=== PATIENT | male | born 1970 | race Caucasian/White ===

== ENCOUNTER 2018-04-10 06:11 | Inpatient (IN) | payer OTHER ==
[2018-04-07 15:23] VITALS: BMI 33.2
[2018-04-10] MEDS ORDERED: PNEUMOC 13-VAL CONJ-DIP CRM/PF 0.5 ML DISP.SYRIN IM ONE (06:48)
[2018-04-10] MEDS ORDERED: CEFAZOLIN 2 GM/D5W 2 GM/50 ML ML IVPB ONE (06:54)
[2018-04-10] MEDS ORDERED: GABAPENTIN 300 MG CAPSULE (FP) PO ONE ×2 (07:02→08:50)
[2018-04-10] MEDS ORDERED: BENZOIN TINCTURE SWABSTICK TP ONE (07:05)
[2018-04-10] MEDS ORDERED: HEPARIN NA (PORCINE) 5,000 UNITS/ML 1ML VIAL ONE (07:05)
[2018-04-10] MEDS ORDERED: THROMBIN (BOVINE) 5,000 UNIT VIAL TP ONE ×2 (07:05→10:58)
[2018-04-10] MEDS ORDERED: BUPIVACAINE HCL/PF 0.5% (5MG/ML) 10 ML VIAL ONE (07:33)
[2018-04-10] MEDS ORDERED: MIDAZOLAM HCL 2 MG/2 ML SINGLE DOSE VIAL ONE ×2 (07:34)
--- NOTE | 2018-04-10 07:57 | HP ---
History & Physical Update - History History: No Change - Physical Physical: No Change - Assessment Assessment: No Change - Plan Plan: No Change (H&P is up to date and located in patient's paper chart (will be scanned into his E-chart STEPHAN). No new complaints or medications. Here today for revision of his L5/S1 hardware.)
[2018-04-10] MEDS ORDERED: BUPIVACAINE LIPOSOME/PF (EXPAREL) 266 MG/20 ML VIAL ONE (08:04)
[2018-04-10] MEDS ORDERED: BUPIVACAINE LIPOSOME/PF (EXPAREL) 266 MG/20 ML VIAL NR ONE (08:08)
[2018-04-10] MEDS ORDERED: fentaNYL CITRATE 250 MCG/5 ML VIAL ONE ×2 (08:26)
[2018-04-10] MEDS ORDERED: PROPOFOL 20 ML ONE ×11 (08:27→11:18)
[2018-04-10] MEDS ORDERED: ROCURONIUM BROMIDE 50 MG/5 ML VIAL ONE ×2 (08:27→09:52)
[2018-04-10] MEDS ORDERED: SUCCINYLCHOLINE CHLORIDE 200 MG/10 ML VIAL ONE (08:28)
[2018-04-10] MEDS ORDERED: HYDROmorphone HCl 2 MG/ML VIAL ONE (08:29)
[2018-04-10] MEDS ORDERED: ceFAZolin SODIUM 1 GM VIAL IVPB ONE ×2 (09:23→12:00)
[2018-04-10] MEDS ORDERED: TRANEXAMIC ACID 1000 MG/10 ML VIAL ONE ×2 (09:26→09:56)
[2018-04-10] MEDS ORDERED: VANCOMYCIN 1,000 MG VIAL (RESTRICTED TO ID ONLY) IVPB ONE (09:40)
[2018-04-10] MEDS ORDERED: DEXAMETHASONE SOD PHOSPHATE 4 MG/1 ML VIAL ONE (09:56)
[2018-04-10] MEDS ORDERED: VANCOMYCIN 1,000 MG VIAL (RESTRICTED TO ID ONLY) ONE (09:56)
[2018-04-10] MEDS ORDERED: ONDANSETRON 4 MG/2 ML VIAL ONE (09:56)
[2018-04-10] MEDS ORDERED: ceFAZolin SODIUM 1 GM VIAL ONE ×2 (09:56→11:37)
[2018-04-10] MEDS ORDERED: GLYCOPYRROLATE 0.2 MG/1 ML VIAL ONE (09:56)
[2018-04-10] MEDS ORDERED: NEOSTIGMINE METHYLSULFATE 0.5 MG/1 ML - 10 ML MDV ONE (09:58)
--- NOTE | 2018-04-10 12:37 | PN ---
Progress Note (short form) - Note Progress Note: 47F s/p removal of hardware L5-S1; inspection L5-S1 fusion mass; revision laminectomy L5; laminectomy S1; bilateral facetectomies/osteotomies L5; instrumentation L5-S1; posterolateral arthrodesis L5-S1 POD #0. Primary repair of incidental durotomy. -Admit to ICU post-op. -Pain control: per anaesthesia team; recommend COVER SEAMER; No NSAID's. -NPO until flatus. -DVT PPx: - Mechanical only: YVETTE's, SCD's. -q4h B/L LE NV checks. -Post-op antibiotics x 2 doses. -f/u AM labs. -f/u superficial drain output; drain to gravity (no suction). -d/c Myers catheter when patient ambulating comfortably. -Care per medical hospitalist team. -Discharge planning: f/u 7-10 days after discharge at [facility] [place] [facility]; call for appointment; ; no bending, lifting more than 5lbs , or twisting x 6 months. -Will follow. Gabriel Harrell MD (Orthopaedic Surgery).
--- NOTE | 2018-04-10 12:40 | OP ---
Operative Note - Note: Operative Date: 04/10/18 Pre-Operative Diagnosis: Recurrent L5-S1 spinal stenosis with neurogenic claudication and lower extremity radiculopathy Operation: 1. Removal of hardware L5-S1. 2. Inspection L5-S1 fusion mass. 3. Revision laminectomy L5. 4. Laminectomy S1. 5. Bilateral facetectomies/ osteotomies L5. 6. Posterior instrumentation L5-S1. 7. Posterolateral arthrodesis L5-S1. 8. Bone autograft. 9. Bone allograft. 10. Iliac crest/ pelvis bone marrow aspirate. 11. Stem cell autograft. 12. Intra-operative neural monitoring. 13. Intra-operative biplanar fluoroscopy Post-Operative Diagnosis: Same as Pre-op Surgeon: Gabriel Harrell Receiving Supervisor: José Luis Harrell Anesthesiologist/SPECIAL CLIENT BUS DRIVER: Hansel Lincoln Anesthesia: General Specimens Removed: L5-S1 hardware Estimated Blood Loss (mls): 320 Drains & Tubes with Location: 1 x superficial HemoVac Blood Volume Replaced (mls): 125 (Cell saver) Fluid Volume Replaced (mls): 2,200 (Crystalloid) Operative Report Dictated: Yes
[2018-04-10] MEDS ORDERED: ONDANSETRON 4 MG/2 ML VIAL IVPUSH PRN ×3 (13:10→14:08)
[2018-04-10] MEDS ORDERED: LACTATED RINGERS SOLUTION 1,000 ML IV SCH ×2 (13:15→14:15)
[2018-04-10] MEDS ORDERED: GABAPENTIN 100 MG CAPSULE (FP) PO SCH (14:00)
--- NOTE | 2018-04-10 14:07 | CONSULT ---
Consultation: REQUESTING PROVIDER: Dr. Noe CONSULT REQUEST: We have been asked to medically evaluate this patient for s/p lumbosacral hardware repair HISTORY OF PRESENT ILLNESS: This is a 47 year old male hx of COPD and recurrent L5-S1 spinal stenosis with neurogenic claudication and LE radiculopathy is s/p removal of L5-S1 hardware and the following other intraoperative procedures by Dr. noe: 1. Removal of hardware L5-S1. 2. Inspection L5-S1 fusion mass. 3. Revision laminectomy L5. 4. Laminectomy S1. 5. Bilateral facetectomies/osteotomies L5. 6. Posterior instrumentation L5-S1. 7. Posterolateral arthrodesis L5-S1. 8. Bone autograft. 9. Bone allograft. 10. Iliac crest/pelvis bone marrow aspirate. 11. Stem cell autograft. 12. Intra-operative neural monitoring. 13. Intra-operative biplanar fluoroscopy Patient is s/p OR and is very tired but arousable. States that his first operation was back in 2013. States that he is in 10/10 pain and has a headache. Denies any chest pain or SOB, nausea, vomiting, diarrhea. No bowel movements or flatus at this time. Social Hx: Smoker of many years: "few cigarettes" a day Frequent drinker: reports drinking often but not every day Allergies: Pollen REVIEW OF SYSTEMS: CONSTITUTIONAL: generalized weakness Absent: fever, chills, diaphoresis, malaise, loss of appetite, weight change HEENT: Absent: rhinorrhea, nasal congestion, throat pain, throat swelling, difficulty swallowing, mouth swelling, ear pain, eye pain, visual changes CARDIOVASCULAR: Absent: chest pain, syncope, palpitations, irregular heart rate, lightheadedness , peripheral edema RESPIRATORY: Absent: cough, shortness of breath, dyspnea with exertion, orthopnea, wheezing, stridor, hemoptysis GASTROINTESTINAL: Absent: abdominal pain, abdominal distension, nausea, vomiting, diarrhea, constipation, melena, hematochezia GENITOURINARY: Absent: dysuria, frequency, urgency, hesitancy, hematuria, flank pain, genital pain MUSCULOSKELETAL: back pain Absent: myalgia, arthralgia, joint swelling, neck pain SKIN: Absent: rash, itching, pallor HEMATOLOGIC/IMMUNOLOGIC: Absent: easy bleeding, easy bruising, lymphadenopathy, frequent infections ENDOCRINE: Absent: unexplained weight gain, unexplained weight loss, heat intolerance, cold intolerance NEUROLOGIC: Absent: headache, focal weakness or paresthesias, dizziness, unsteady gait, seizure, mental status changes, bladder or bowel incontinence PSYCHIATRIC: Absent: anxiety, depression, suicidal or homicidal ideation, hallucinations. PHYSICAL EXAMINATION Vital Signs - 24 hr 04/10/18 04/10/18 04/10/18 06:50 06:53 06:55 Temperature 98.1 F Pulse Rate 92 H Respiratory 20 Rate Blood Pressure 128/68 O2 Sat by Pulse 97 97 Oximetry (%) GENERAL: A&Ox3, mild distress EYES: PERRLA, EOMI ENT: Dry mucus membranes NECK: No JVD LUNGS: course breath sounds HEART: tachycardic, no murmurs ABDOMEN: Soft, nontender, BS present MUSCULOSKELETAL: unable to see patient spine due to immobility and pain, drain in place, L knee slightly larger than right but nontender on exam EXTREMITIES: 2+ pulses, no edema. NEUROLOGICAL: Cranial nerves II-XII intact. Motor strength limited due to pain. Sensation intact bilaterally Laboratory Results - last 24 hr 04/10/18 04/10/18 07:30 07:46 Blood Type O POSITIVE O POSITIVE Antibody Screen Negative Active Medications Generic Name Dose Route Start Last Admin Trade Name Freq PRN Reason Stop Dose Admin Acetaminophen 1,000 mg 04/10/18 13:15 Ofirmev Injection - IVPB 04/11/18 05:16 Q8H GEORGE Albuterol Sulfate 1 - 2 puff 04/10/18 14:00 Ventolin Hfa Inhaler - IH QID GEORGE Alprazolam 0.25 mg 04/10/18 22:00 Xanax - PO BID GEORGE Amlodipine Besylate 10 mg 04/11/18 10:00 Norvasc - PO DAILY GEORGE Budesonide/Formoterol Fumarate 1 puff 04/11/18 10:00 Symbicort 160/4.5mcg - IH DAILY GEORGE Cefazolin Sodium/Dextrose 2 gm 04/10/18 19:00 Ancef 2 Gm Premixed Ivpb - IVPB 04/11/18 03:01 Q8H GEORGE Gabapentin 100 mg 04/10/18 14:00 Neurontin - PO TID GEORGE Lactated Ringer's 1,000 mls @ 125 mls/hr 04/10/18 13:15 Lactated Ringers Solution IV ASDIR [facility] Influenza Virus Vaccine Quadrival 60 mcg 04/10/18 06:46 Flulaval Quad [id number] IM 04/10/18 06:47 .ONCE ONE Lisinopril 10 mg 04/11/18 10:00 Prinivil PO DAILY GEORGE Loratadine 10 mg 04/11/18 10:00 Claritin - PO DAILY [facility] Losartan Potassium 25 mg 04/11/18 10:00 Cozaar - PO DAILY [facility] Montelukast Sodium 10 mg 04/10/18 22:00 Singulair - PO HS [facility] Non-Formulary Medication 4 gm 04/11/18 10:00 Ipratropium/Albuterol Sulfate [Combivent Respimat 20-100 Mcg] IH DAILY [facility] Ondansetron HCl 4 mg 04/10/18 13:10 Zofran Injection IVPUSH Q6H PRN NAUSEA AND/OR VOMITING Pneumococcal 13-Valent Conj Vacc 0.5 ml 04/10/18 06:48 Prevnar 13 Syringe - IM 04/10/18 06:49 .ONCE ONE Pregabalin 75 mg 04/11/18 10:00 Lyrica - PO DAILY [facility] Rosuvastatin Calcium 5 mg 04/10/18 22:00 Crestor - PO HS GEORGE Trazodone HCl 50 mg 04/11/18 10:00 Desyrel - PO DAILY [facility] ASSESSMENT/PLAN: This is a 47 year old male hx of COPD, hypertension, anxiety and recurrent L5- S1 spinal stenosis with neurogenic claudication and LE radiculopathy is s/p removal of L5-S1 hardware, POD0 Neuro: patient is A&Ox3 but tired Monitor mental status Neurochecks q4h for motor strength and sensation Cardiovascular: patient is tachycardic, likely due to pain -monitor heart rate and rhythm -will restart hypertensive medications when confirmed Pulmonary: -incentive spirometry recommended Gastrointestinal: patient has not yet passed flatus -NPO until flatus Musculoskeletal: POD0 L5-S1 hardware removal -pain control with PRIMARY SPECIAL EDUCATION TEACHER -monitor drain output on gravity -REGINA mcgraw when patient ambulates -NPO till flatus -AM labs Prophylaxis SCDs Dispo: We will continue to follow the patient. Thank you for this consultative opportunity.
[2018-04-10] MEDS ORDERED: HYDROmorphone *PCA* 10MG/50ML DISP.SYRIN PCA SCH (14:15)
[2018-04-10] MEDS: ACETAMINOPHEN 1000 MG/100 ML VIAL (NON FORMULARY) IVPB SCH (15:55)
[2018-04-10] MEDS: HYDROmorphone *PCA* 10MG/50ML DISP.SYRIN PCA SCH (17:30)
[2018-04-10] MEDS: ceFAZolin 2 GRAM PREMIX BAG IVPB SCH (19:14)
[2018-04-10] MEDS ORDERED: DEXTROSE 5%-LACTATED RINGERS 1,000 ML IV SCH ×2 (19:30→23:11)
[2018-04-10] MEDS ORDERED: FLU VACCINE QUAD 60 MCG/0.5 ML (MDV 18-19) IM ONE (19:30)
[2018-04-10] MEDS ORDERED: PNEUMOCOCCAL 23 VACCINE 0.5 ML VIAL IM ONE (19:30)
[2018-04-10] MEDS ORDERED: MONTELUKAST NA 10 MG TABLET PO SCH (22:00)
[2018-04-10] MEDS ORDERED: ROSUVASTATIN CA 5 MG TABLET (FP) PO SCH (22:00)
--- NOTE | 2018-04-10 22:06 | OP ---
DATE OF OPERATION: 04/10/2018 SURGEON: Gabriel Harrell MD CREDIT INTERN: José uLis Harrell MD PREOPERATIVE DIAGNOSES: Pseudoarthrosis, L5-S1 with associated spinal stenosis and segmental instability. POSTOPERATIVE DIAGNOSES: Pseudoarthrosis, L5-S1 with associated spinal stenosis and segmental instability. OPERATION PERFORMED: 1. Removal of hardware. 2. Inspection of fusion mass. 3. Revision laminectomy, L5 with undercutting facetectomy and takedown of pseudoarthrosis. 4. Pedicle screw instrumentation at L5-S1. 5. Posterolateral arthrodesis, L5-S1. 6. Use of bone marrow aspirate concentrate from left posterior ilium and autologous allograft expansion. 7. Complex wound closure, 25 cm. ANESTHESIA: General. ANTIBIOTICS GIVEN: Kefzol 2 g, vancomycin 1 g. OPERATION DETAILS: Patient correctly identified, brought to the operating room. Lumbar spine was prepped and draped in the routine manner with Betadine scrub solution, wiped off with alcohol, DuraPrep applied. Patient was placed prone on a Thee frame. All bony points were appropriately padded. Surgery performed with the head 10 degrees elevated. Midline incision utilized. The old wound was opened, was extended about 1.5 cm proximally. Dissection was taken through the skin and subcutaneous tissue to the tips of the spinous processes, exposing L3, L4, L5, S1. The tissues were hard, hence the need to getting up to L3 to achieve appropriate retraction. Dissection was taken of the spinous processes down to the laminae of the facet joints out to the tips of the transverse processes, left- and right-hand side. The original hardware was identified and dissected out. This was then simply removed and the fusion mass inspected, found to be unstable, and in keeping with the pseudoarthrosis, the fibrous tissues readily noted in the bony ends of the pseudoarthrosis. Using every surgical technique I knew in order to free the dura as well as into the plane anterior to the dura to remove the large block of bone that was noted posterolaterally on the left-hand side, this necessitated the use of a combination of Kerrison upcuts, Leksell rongeurs, as well as osteotomes in order to implode the bone inwards, and the principle being that dissection was always taken from normal tissue to abnormal tissue to ensure that the planes were established. A small dural tear was encountered distally and sutured with primary 4-0 Nurolon and, with repeat Valsalva maneuvers, was found to be completely sealed. Once that had been performed and the complete freeing of the theca and that the theca was being looked at beautifully from the back extending to the lateral catherine of the theca as all the bone on the sides of the vertebral canal were excised, gently teasing the tissue both from left- and right-hand side off the posterior longitudinal ligament as well as the posterior vertebral bodies, a significant decompression from the front was performed, but this all done from behind. This was technically challenging. The actual bone that was removed from the back wall of the theca was a large, 1-cm block of bone that was ultimately all removed. The wounds were thoroughly lavaged out that the previous fusion was established, failed fusion, we went ahead and excised the fibrous tissue out of the nonunion site and packed it with a combination of autologous bone graft and allograft mixed with 60 mL of bone marrow aspirate concentrate liquid. Once this had been performed, the pedicle screws were seated, the transverse screws were measured 6.5 x 40, and the inferior screws which were re-directed were 7.5 x 40. Solid fixation achieved with screws. It must be noted that at the time of screw removal and the pseudoarthrosis had been encountered, it was noted that the left L5 screw was completely loose. Hence, the need for the size screw on the left S1 being 7.5. The rods were contoured appropriately onto the tulips, fixed solidly with the torque device. No crosslink utilized. The wounds were thoroughly lavaged. The entire theca was free. Each nerve was free in its foramen after undercutting each foramen appropriately. The instrumented posterolateral arthrodesis now was completed. The closure was as follows: Muscle 1 Vicryl, fascia 1 Vicryl, subcutaneous 1 and 2-0 Vicryl, skin 3-0 Monocryl with Steri-Strips. Drainage: A 1/8-inch x1 superficially and left to gravity suction. No complications. Operation went extremely well. It was extremely difficult. The complex wound closure, the 4-layered closure performed, held well in terms of the integrity of the tissues to achieve a primary closure under slight tension. PLAN: For mobilization within range of comfort. MD MARIA ELENA Chávez/[id number]
[2018-04-10] MEDS: ALPRAZolam 0.25 MG TABLET PO SCH (22:26)
[2018-04-10] MEDS: ALBUTEROL SO4 8 GM HFA INHALER IH SCH (22:29)
--- NOTE | 2018-04-10 22:55 | PN ---
Physical Exam: SUBJECTIVE: Patient seen and examined at bedside. He is alert, awake and oriented. He reports having a headache which he attributes to hunger. Patient reports not passing flatulence or having a BM yet. He states" I need to eat something in order to pass gas". He has no other complaints at this time. OBJECTIVE: Vital Signs Period Temp Pulse Resp BP Sys/Pozo Pulse Ox Last 24 Hr 97.5 F-98.1 F 92-115 10-21 110-142/68-90 96-97 GENERAL: The patient is awake, alert, and fully oriented, in no acute distress. HEAD: Normal with no signs of trauma. EYES: PERRL, extraocular movements intact, sclera anicteric, conjunctiva clear. No ptosis. ENT: Ears normal, nares patent, oropharynx clear without exudates, moist mucous membranes. NECK: Trachea midline, full range of motion, supple. LUNGS: Breath sounds equal, clear to auscultation bilaterally, no wheezes, no crackles, no accessory muscle use. HEART: Regular rate and rhythm, S1, S2 without murmur, rub or gallop. ABDOMEN: Obese, soft, nontender, nondistended, normoactive bowel sounds, no guarding, no rebound, no hepatosplenomegaly, no masses. MUSCULOSKELETAL: dressing to lower lumbar c/d/i, hemovac with bloody drainage EXTREMITIES: 2+ pulses, warm, well-perfused, no edema. +SCDs NEUROLOGICAL: Cranial nerves II through XII grossly intact. Normal speech, gait not observed. PSYCH: Normal mood, normal affect. SKIN: Warm, dry, normal turgor, no rashes or lesions noted Laboratory Results - last 24 hr 04/10/18 04/10/18 07:30 07:46 Blood Type O POSITIVE O POSITIVE Antibody Screen Negative Active Medications Generic Name Dose Route Start Last Admin Trade Name Freq PRN Reason Stop Dose Admin Acetaminophen 1,000 mg 04/10/18 13:15 04/10/18 15:55 Ofirmev Injection - IVPB 04/11/18 05:16 1,000 mg Q8H GEORGE Administration Albuterol Sulfate 2 puff 04/10/18 14:00 04/10/18 22:29 Ventolin Hfa Inhaler - IH 2 puff QID GEORGE Administration Alprazolam 0.25 mg 04/10/18 22:00 04/10/18 22:26 Xanax - PO Not Given BID [facility] Amlodipine Besylate 10 mg 04/11/18 10:00 Norvasc - PO DAILY [facility] Budesonide/Formoterol Fumarate 1 puff 04/11/18 10:00 Symbicort 160/4.5mcg - IH DAILY [facility] Cefazolin Sodium/Dextrose 2 gm 04/10/18 19:00 04/10/18 19:14 Ancef 2 Gm Premixed Ivpb - IVPB 04/11/18 03:01 2 gm Q8H GEORGE Administration Diphenhydramine HCl 12.5 mg 04/10/18 14:08 Benadryl Injection - IVPUSH ONCE PRN FOR ITCHING Fentanyl 50 mcg 04/10/18 14:07 04/10/18 16:01 Sublimaze Injection - IVPUSH 04/11/18 03:00 50 mcg Q5M PRN Administration PAIN-PACU ORDER X 4 DOSES ONLY Hydromorphone HCl 0.2 mg 04/10/18 15:50 04/10/18 17:30 Dilaudid Educational Psychologist - SALAD BAR CLERK 04/17/18 14:08 0.2 mg SALAD BAR CLERK [facility] Administration Protocol Dextrose/Lactated Ringer's 1,000 mls @ 125 mls/hr 04/10/18 19:30 D5-Lr - IV ASDIR [facility] Loratadine 10 mg 04/11/18 10:00 Claritin - PO DAILY [facility] Losartan Potassium 25 mg 04/11/18 10:00 Cozaar - PO DAILY [facility] Montelukast Sodium 10 mg 04/10/18 22:00 04/10/18 22:34 Singulair - PO Not Given HS [facility] Ondansetron HCl 4 mg 04/10/18 14:07 Zofran Injection IVPUSH Q6H PRN NAUSEA AND/OR VOMITING Ondansetron HCl 4 mg 04/10/18 14:08 Zofran Injection IVPUSH Q4H PRN NAUSEA AND/OR VOMITING Pregabalin 75 mg 04/11/18 10:00 Lyrica - PO DAILY [facility] Rosuvastatin Calcium 5 mg 04/10/18 22:00 04/10/18 22:26 Crestor - PO Not Given HS [facility] Trazodone HCl 50 mg 04/11/18 10:00 Desyrel - PO DAILY GEORGE ASSESSMENT/PLAN: This is a 47 y/o man with a PMHx of: recurrent L5-S1 Spinal Stenosis, LE Radiculopathy, HTN, COPD, Asthma, Sleep Apnea (no CPAP), Depression. POD #0 s/p Removal of Hardware, Revision Laminectomy. Plan: 1. Ortho: s/p Removal of Hardware s/p Revision Laminectomy Continue ortho regimen Incentive Spirometry Monitor CBC, BMP Pain Management on Dilaudid SALAD BAR CLERK, Ofirmev Continue Lyrica Neurovascular checks Monitor vitals 2. Cardiovascular: Hypertension Hyperlipidemia stable Continue Norvasc, Cozaar, Crestor 3. Pulm: COPD Asthma Sleep Apnea stable no acute flare Continue Albuterol MDI, Symbicort, Claritin, Singulair O2 Patient does not use CPAP 4. Psych: Depression Continue Trazodone, Xanax FEN PO fluids as tolerated Replete lytes prn Low Na Diet DVT ppx SCDs Visit type - Emergency Visit Emergency Visit: Yes ED Registration Date: 04/10/18 Care time: The patient presented to the Emergency Department on the above date and was hospitalized for further evaluation of their emergent condition. - New Patient This patient is new to me today: Yes Date on this admission: 04/10/18 - Critical Care Critical Care patient: No
[2018-04-10] MEDS ORDERED: LORazepam 2 MG/ML SDV VIAL IVPUSH ONE (23:03)
[2018-04-11] MEDS: ceFAZolin 2 GRAM PREMIX BAG IVPB SCH (04:04)
[2018-04-11] MEDS ORDERED: HYDROmorphone *PCA* 10MG/50ML DISP.SYRIN PCA SCH ×3 (06:03→19:41)
[2018-04-11] MEDS: ACETAMINOPHEN 1000 MG/100 ML VIAL (NON FORMULARY) IVPB SCH (06:06)
[2018-04-11] MEDS: HYDROmorphone *PCA* 10MG/50ML DISP.SYRIN PCA SCH (06:07)
[2018-04-11 06:52] LABS: ANION GAP 10 MMOL/L (8-16); BLOOD UREA NITROGEN 9 mg/dL (7-18); CALCIUM 8.1 mg/dL (8.5-10.1); CHLORIDE 102 mmol/L (98-107); CO2 25 mmol/L (21-32); GLUCOSE,RANDOM 148 mg/dL (74-106); POTASSIUM 4.1 mmol/L (3.5-5.1); SODIUM 136 mmol/L (136-145)
[2018-04-11 07:03] LABS: HEMATOCRIT 34.7 % (35.4-49); HEMOGLOBIN 11.8 GM/dL (11.7-16.9); MCH 31.7 pg (25.7-33.7); MCHC 33.9 g/dl (32.0-35.9); MEAN CELL VOLUME 93.4 fl (80-96); MEAN PLT VOLUME 9.4 fl (7.5-11.1); PLATELET COUNT 284 K/MM3 (134-434); RBC 3.71 M/mm3 (4.00-5.60); RDW 14.1 % (11.9-15.9); WHITE BLOOD COUNT 13.3 K/mm3 (4.0-10.0)
[2018-04-11] MEDS ORDERED: oxyCODONE HCL 5 MG TABLET PO PRN (08:35)
[2018-04-11] MEDS ORDERED: ACETAMINOPHEN 325 MG TABLET (FP) PO PRN ×2 (08:35→19:41)
[2018-04-11] MEDS ORDERED: PT OWN MED DRAWER 7, Y5N ONE ×3 (08:55→23:05)
[2018-04-11] MEDS: ALPRAZolam 0.25 MG TABLET PO SCH (09:02)
--- NOTE | 2018-04-11 09:05 | PN ---
Progress Note (short form) - Note Progress Note: POD#1 Pt without any nausea, CP or SOB. No headaches today. Vital Signs Period Temp Pulse Resp BP Sys/Pozo Pulse Ox Last 24 Hr 97.5 F-99.1 F 94-121 10-28 110-163/70-104 96-97 PARISA-210ml Mcgraw-1950 clear GEN: A&0x3, NAD ABD: Soft, non-distended, non-tender LE: 5/5 dorsi/plantar bilateral. No calf swelling, or tenderness noted. SCD/M[place] stocking in place. Back: Inc c/d/i. No ecchymosis/erythema/drainage noted. CBC, BMP /05/ 05:30 // 05:30 A/p: 47 yo male s/p revision of laminectomy L5-S1 Plan for OOB to chair/Physical Therapy Discontinue IVF-begin diet, stool softners Discontinue mcgraw, TOV D/w Dr. Maxwell Oxycodone for pain, added valium for break thru pain as needed
[2018-04-11] MEDS ORDERED: diazePAM 5 MG TABLET PO PRN (09:21)
--- NOTE | 2018-04-11 09:30 | PN ---
Physical Exam: SUBJECTIVE: Patient seen and examined in the icu. OBJECTIVE: sinus tachycardia on cardiac catheterization technician 2/2 to discomfort/pain. Vital Signs Period Temp Pulse Resp BP Sys/Pozo Pulse Ox Last 24 Hr 97.5 F-99.1 F 94-121 10- 110-163/70-104 96-97 GENERAL: The patient is awake, alert, and fully oriented, in no acute distress. HEAD: Normal with no signs of trauma. EYES: PERRL, extraocular movements intact, sclera anicteric, conjunctiva clear. No ptosis. ENT: Ears normal, nares patent, oropharynx clear without exudates, moist mucous membranes. NECK: Trachea midline, full range of motion, supple. LUNGS: Breath sounds equal, diminished bilaterally HEART: tachycardiac 120s ABDOMEN: Soft, nontender, nondistended, normoactive bowel sounds, no guarding, EXTREMITIES: 2+ pulses, warm, well-perfused, no edema. NEUROLOGICAL: PSYCH: Normal mood, normal affect. SKIN: dressing intact Laboratory Results - last 24 hr 04/11/18 04/11/18 05:30 05:30 WBC 13.3 H RBC 3.71 L Hgb 11.8 Hct 34.7 L MCV 93.4 MCH 31.7 MCHC 33.9 RDW 14.1 Plt Count 284 MPV 9.4 Sodium 136 Potassium 4.1 Chloride 102 Carbon Dioxide 25 Anion Gap 10 BUN 9 Creatinine 1.0 Creat Clearance w eGFR > 60 Random Glucose 148 H Calcium 8.1 L Active Medications Generic Name Dose Route Start Last Admin Trade Name Freq PRN Reason Stop Dose Admin Acetaminophen 650 mg 04/11/18 08:35 Tylenol - PO Q6H PRN PAIN LEVEL 6-10 Albuterol Sulfate 2 puff 04/10/18 14:00 04/10/18 22:29 Ventolin Hfa Inhaler - IH 2 puff QID GEORGE Administration Alprazolam 0.25 mg 04/10/18 22:00 04/11/18 09:02 Xanax - PO 0.25 mg BID GEORGE Administration Amlodipine Besylate 10 mg 04/11/18 10:00 04/11/18 09:01 Norvasc - PO 10 mg DAILY GEORGE Administration Budesonide/Formoterol Fumarate 1 puff 04/11/18 10:00 Symbicort 160/4.5mcg - IH DAILY GEORGE Diazepam 5 mg 04/11/18 09:21 Valium - PO Q8H PRN MUSCLE SPASMS Diphenhydramine HCl 12.5 mg 04/10/18 14:08 04/11/18 09:17 Benadryl Injection - IVPUSH 12.5 mg ONCE PRN Administration FOR ITCHING Docusate Sodium 100 mg 04/11/18 10:00 Colace - PO BID GEORGE Loratadine 10 mg 04/11/18 10:00 04/11/18 09:02 Claritin - PO 10 mg DAILY GEORGE Administration Losartan Potassium 25 mg 04/11/18 10:00 04/11/18 09:02 Cozaar - PO 25 mg DAILY GEORGE Administration Montelukast Sodium 10 mg 04/10/18 22:00 04/10/18 22:34 Singulair - PO Not Given HS GEORGE Ondansetron HCl 4 mg 04/10/18 14:07 Zofran Injection IVPUSH Q6H PRN NAUSEA AND/OR VOMITING Ondansetron HCl 4 mg 04/10/18 14:08 Zofran Injection IVPUSH Q4H PRN NAUSEA AND/OR VOMITING Oxycodone HCl 10 mg 04/11/18 08:35 Roxicodone - PO Q6H PRN 6-10 Pregabalin 75 mg 04/11/18 10:00 04/11/18 09:02 Lyrica - PO 75 mg DAILY [facility] Administration Rosuvastatin Calcium 5 mg 04/10/18 22:00 04/10/18 22:26 Crestor - PO Not Given HS GEORGE Trazodone HCl 50 mg 04/11/18 10:00 04/11/18 09:01 Desyrel - PO 50 mg DAILY GEORGE Administration ASSESSMENT/PLAN: Patient is a 47 y/o man with a PMHx of: recurrent L5-S1 Spinal Stenosis, LE Radiculopathy, HTN, COPD, Asthma, Sleep Apnea (no CPAP), Depression. s/p Removal of Hardware, Revision Laminectomy. Back Surgery: s/p Removal of Hardware, revision Laminectomy incentive spirometer monitor labs, vitals, pain management continue lyrica neuro checks physical therapy bowel regimen Cardiovascular: Hypertension/hyperlipidemia Continue Norvasc, Cozaar, Crestor Pulmonary COPD Asthma Continue Albuterol MDI, Symbicort, Claritin, Singulair Psych: Depression Continue Trazodone, Xanax fen PO fluids as tolerated Replete lytes prn Low Na Diet DVT ppx SCDs
[2018-04-11] MEDS ORDERED: LORATADINE 10 MG TABLET PO SCH (10:00)
[2018-04-11] MEDS ORDERED: amLODIPine BESYLATE 10 MG TABLET (FP) PO SCH (10:00)
[2018-04-11] MEDS ORDERED: DOCUSATE SODIUM 100 MG CAPSULE (FP) PO SCH (10:00)
[2018-04-11] MEDS ORDERED: PATIENT'S OWN MEDICATION (NON-FORMULARY) (Ipratropium/Albuterol Sulfate [Combivent Respima IH SCH (10:00)
[2018-04-11] MEDS ORDERED: BUDESONIDE/FORMETEROL FUMARATE 160/4.5 mcg INHALER IH SCH (10:00)
[2018-04-11] MEDS ORDERED: LISINOPRIL 10 MG TABLET (FP) PO SCH (10:00)
[2018-04-11] MEDS ORDERED: PREGABALIN 75 MG CAPSULE PO SCH (10:00)
[2018-04-11] MEDS ORDERED: traZODone HCL 50 MG TABLET (FP) PO SCH (10:00)
[2018-04-11] MEDS ORDERED: LOSARTAN POTASSIUM 25 MG TABLET PO SCH (10:00)
[2018-04-11] MEDS: ALBUTEROL SO4 8 GM HFA INHALER IH SCH ×4 (10:55→22:30)
--- NOTE | 2018-04-11 11:55 | PN ---
Teaching Attending Note Name of Resident: Arsenio Olson ATTENDING PHYSICIAN STATEMENT I saw and evaluated the patient. I reviewed the resident's note and discussed the case with the resident. I agree with the resident's findings and plan as documented. SUBJECTIVE: Pt seen and examined in the ICU. Pain relatively controlled. Has been ambulating with PT. Myers out. No fevers or chills. OBJECTIVE: Vital Signs Period Temp Pulse Resp BP Sys/Pozo Pulse Ox Last 24 Hr 97.5 F-99.1 F 94-121 10-28 110-163/70-104 96-97 Intake & Output 04/08/18 04/09/18 04/10/18 04/11/18 23:59 23:59 23:59 23:59 Intake Total 3650 1000 Output Total 1150 1710 Balance 2500 -710 Gen: NAD at rest Heart: RRR Lung: decreased breath sounds at the bases Abd: soft, nontender Ext: no edema Drain with serosanguinous fluid CBC, BMP 04/11/18 05:30 04/11/18 05:30 Active Medications Acetaminophen (Tylenol -) 650 mg PO Q6H PRN PRN Reason: PAIN LEVEL 6-10 Albuterol Sulfate (Ventolin Hfa Inhaler -) 2 puff IH QID [facility] Last Admin: 04/11/18 10:55 Dose: 2 puff Alprazolam (Xanax -) 0.25 mg PO BID [facility] Last Admin: 04/11/18 09:02 Dose: 0.25 mg Amlodipine Besylate (Norvasc -) 10 mg PO DAILY [facility] Last Admin: 04/11/18 09:01 Dose: 10 mg Budesonide/Formoterol Fumarate (Symbicort 160/4.5mcg -) 1 puff IH DAILY [facility] Diazepam (Valium -) 5 mg PO Q8H PRN PRN Reason: MUSCLE SPASMS Last Admin: 04/11/18 10:56 Dose: 5 mg Diphenhydramine HCl (Benadryl Injection -) 12.5 mg IVPUSH ONCE PRN PRN Reason: FOR ITCHING Last Admin: 04/11/18 09:17 Dose: 12.5 mg Docusate Sodium (Colace -) 100 mg PO BID [facility] Last Admin: 04/11/18 10:56 Dose: 100 mg Loratadine (Claritin -) 10 mg PO DAILY [facility] Last Admin: 04/11/18 09:02 Dose: 10 mg Losartan Potassium (Cozaar -) 25 mg PO DAILY [facility] Last Admin: 04/11/18 09:02 Dose: 25 mg Montelukast Sodium (Singulair -) 10 mg PO HS [facility] Last Admin: 04/10/18 22:34 Dose: Not Given Ondansetron HCl (Zofran Injection) 4 mg IVPUSH Q6H PRN PRN Reason: NAUSEA AND/OR VOMITING Ondansetron HCl (Zofran Injection) 4 mg IVPUSH Q4H PRN PRN Reason: NAUSEA AND/OR VOMITING Oxycodone HCl (Roxicodone -) 10 mg PO Q6H PRN PRN Reason: 6-10 Pregabalin (Lyrica -) 75 mg PO DAILY [facility] Last Admin: 04/11/18 09:02 Dose: 75 mg Rosuvastatin Calcium (Crestor -) 5 mg PO [facility] Last Admin: 04/10/18 22:26 Dose: Not Given Trazodone HCl (Desyrel -) 50 mg PO DAILY [facility] Last Admin: 04/11/18 09:01 Dose: 50 mg ASSESSMENT AND PLAN: Recurrent L5-S1 Spinal Stenosis with neurogenic claudication and radiculopathy s/p DEMARCUS/Revision Laminectomy/Posterior Instrumentation COPD HTN Hyperlipidemia - pain control - incentive spirometry - bowel regimen - monitor drain output - rehab/PT - inhaled bronchodilators - benadryl as needed - DVT prophylaxis - disposition per surgery
--- NOTE | 2018-04-11 13:08 | PN ---
Physical Exam: SUBJECTIVE: Patient seen and examined patient seen and examined. no symptomatic complaints. denies fever and chills. had BM and flatus. able to tolerate PO and ambulation. will be transferred to the floors. OBJECTIVE: Vital Signs Period Temp Pulse Resp BP Sys/Pozo Pulse Ox Last 24 Hr 97.5 F-99.1 F 94-121 10-28 110-163/70-104 96-97 GENERAL: The patient is awake, alert, and fully oriented, in no acute distress. HEAD: Normal with no signs of trauma. EYES: PERRL, extraocular movements intact, sclera anicteric, conjunctiva clear. No ptosis. ENT: Ears normal, nares patent, oropharynx clear without exudates, moist mucous membranes. NECK: Trachea midline, full range of motion, supple. LUNGS: Breath sounds equal, clear to auscultation bilaterally, no wheezes, no crackles, no accessory muscle use. HEART: tachycardia rate and rhythm, S1, S2 without murmur, rub or gallop. ABDOMEN: Soft, nontender, nondistended, normoactive bowel sounds, no guarding, no rebound, no hepatosplenomegaly, no masses. EXTREMITIES: 2+ pulses, warm, well-perfused, no edema. NEUROLOGICAL: Cranial nerves II through XII grossly intact. Normal speech, gait not observed. PSYCH: Normal mood, normal affect. SKIN: Warm, dry, normal turgor, no rashes or lesions noted Back: incision bandages. drain in place Laboratory Results - last 24 hr 04/11/18 04/11/18 05:30 05:30 WBC 13.3 H RBC 3.71 L Hgb 11.8 Hct 34.7 L MCV 93.4 MCH 31.7 MCHC 33.9 RDW 14.1 Plt Count 284 MPV 9.4 Sodium 136 Potassium 4.1 Chloride 102 Carbon Dioxide 25 Anion Gap 10 BUN 9 Creatinine 1.0 Creat Clearance w eGFR > 60 Random Glucose 148 H Calcium 8.1 L Active Medications Generic Name Dose Route Start Last Admin Trade Name Freq PRN Reason Stop Dose Admin Acetaminophen 650 mg 04/11/18 08:35 04/11/18 12:03 Tylenol - PO 650 mg Q6H PRN Administration PAIN LEVEL 6-10 Albuterol Sulfate 2 puff 04/10/18 14:00 04/11/18 10:55 Ventolin Hfa Inhaler - IH 2 puff QID [facility] Administration Alprazolam 0.25 mg 04/10/18 22:00 04/11/18 09:02 Xanax - PO 0.25 mg BID [facility] Administration Amlodipine Besylate 10 mg 04/11/18 10:00 04/11/18 09:01 Norvasc - PO 10 mg DAILY [facility] Administration Budesonide/Formoterol Fumarate 1 puff 04/11/18 10:00 Symbicort 160/4.5mcg - IH DAILY [facility] Diazepam 5 mg 04/11/18 09:21 04/11/18 10:56 Valium - PO 5 mg Q8H PRN Administration MUSCLE SPASMS Diphenhydramine HCl 12.5 mg 04/10/18 14:08 04/11/18 09:17 Benadryl Injection - IVPUSH 12.5 mg ONCE PRN Administration FOR ITCHING Docusate Sodium 100 mg 04/11/18 10:00 04/11/18 10:56 Colace - PO 100 mg BID [facility] Administration Loratadine 10 mg 04/11/18 10:00 04/11/18 09:02 Claritin - PO 10 mg DAILY [facility] Administration Losartan Potassium 25 mg 04/11/18 10:00 04/11/18 09:02 Cozaar - PO 25 mg DAILY [facility] Administration Montelukast Sodium 10 mg 04/10/18 22:00 04/10/18 22:34 Singulair - PO Not Given HS [facility] Ondansetron HCl 4 mg 04/10/18 14:07 Zofran Injection IVPUSH Q6H PRN NAUSEA AND/OR VOMITING Ondansetron HCl 4 mg 04/10/18 14:08 Zofran Injection IVPUSH Q4H PRN NAUSEA AND/OR VOMITING Oxycodone HCl 10 mg 04/11/18 08:35 04/11/18 12:05 Roxicodone - PO 10 mg Q6H PRN Administration 6-10 Pregabalin 75 mg 04/11/18 10:00 04/11/18 09:02 Lyrica - PO 75 mg DAILY [facility] Administration Rosuvastatin Calcium 5 mg 04/10/18 22:00 04/10/18 22:26 Crestor - PO Not Given HS [facility] Trazodone HCl 50 mg 04/11/18 10:00 04/11/18 09:01 Desyrel - PO 50 mg DAILY [facility] Administration ASSESSMENT/PLAN: This is a 47 year old male hx of COPD, hypertension, anxiety and recurrent L5- S1 spinal stenosis with neurogenic claudication and LE radiculopathy is s/p removal of L5-S1 hardware, POD1 Had the following procedures: 1. Removal of hardware L5-S1. 2. Inspection L5-S1 fusion mass. 3. Revision laminectomy L5. 4. Laminectomy S1. 5. Bilateral facetectomies/osteotomies L5. 6. Posterior instrumentation L5-S1. 7. Posterolateral arthrodesis L5-S1. 8. Bone autograft. 9. Bone allograft. 10. Iliac crest/pelvis bone marrow aspirate. 11. Stem cell autograft. 12. Intra-operative neural monitoring. 13. Intra-operative biplanar fluoroscopy Neuro: patient is A&Ox3 active Monitor mental status Neurochecks q4h for motor strength and sensation Cardiovascular: -patient is tachycardic, likely due to pain -monitor heart rate and rhythm Pulmonary: -incentive spirometry recommended Gastrointestinal: -Had flatus, able to tolerate PO Musculoskeletal: POD1 L5-S1 hardware removal -pain control with BILLING CLERK -monitor drain output on gravity -DC mcgraw -had PT today Prophylaxis SCDs Dispo: To be transferred to the floors Visit type - Emergency Visit Emergency Visit: Yes ED Registration Date: 04/10/18 Care time: The patient presented to the Emergency Department on the above date and was hospitalized for further evaluation of their emergent condition. - New Patient This patient is new to me today: No - Critical Care Critical Care patient: Yes Total Critical Care Time (in minutes): 36 Critical Care Statement: The care of this patient involved high complexity decision making to prevent further life threatening deterioration of the patient 's condition and/or to evaluate & treat vital organ system(s) failure or risk of failure. - Discharge Referral Referred to [facility] Med P.C.: No
[2018-04-11] MEDS ORDERED: CEFAZOLIN 2 GM/D5W 2 GM/50 ML ML IVPB ONE (19:41)
[2018-04-11] MEDS ORDERED: GABAPENTIN 300 MG CAPSULE (FP) PO ONE (19:41)
[2018-04-11] MEDS ORDERED: ONDANSETRON 4 MG/2 ML VIAL IVPUSH PRN ×2 (19:41)
[2018-04-11] MEDS ORDERED: MONTELUKAST NA 10 MG TABLET PO SCH (22:00)
[2018-04-11] MEDS ORDERED: ALPRAZolam 0.25 MG TABLET PO SCH (22:00)
[2018-04-11] MEDS ORDERED: ROSUVASTATIN CA 5 MG TABLET (FP) PO SCH (22:00)
[2018-04-11] MEDS ORDERED: ALBUTEROL SO4 2.5/IPRATROPIUM 0.5 INH SOL 3 ML VIAL.NEB. NEB PRN (22:25)
[2018-04-11] MEDS: DOCUSATE SODIUM 100 MG CAPSULE (FP) PO SCH (22:29)
[2018-04-11] MEDS: guaiFENesin 200 MG/10 ML 10 ML UNIT-DOSE CUPS PO PRN (22:35)
[2018-04-12] MEDS: diazePAM 5 MG TABLET PO PRN ×2 (01:51→12:57)
[2018-04-12 06:14] LABS: BASO % 0.7 % (0-2.0); EOS % 1.3 % (0-4.5); HEMATOCRIT 35.7 % (35.4-49); HEMOGLOBIN 11.9 GM/dL (11.7-16.9); LYMPH % 14.7 % (8-40); MCH 30.7 pg (25.7-33.7); MCHC 33.4 g/dl (32.0-35.9); MEAN CELL VOLUME 92.1 fl (80-96); MEAN PLT VOLUME 7.9 fl (7.5-11.1); MONO % 11.1 % (3.8-10.2); NEUT % 72.2 % (42.8-82.8); PLATELET COUNT 296 K/MM3 (134-434); RBC 3.88 M/mm3 (4.00-5.60); RDW 14.6 % (11.9-15.9); WHITE BLOOD COUNT 11.5 K/mm3 (4.0-10.0)
[2018-04-12] MEDS: guaiFENesin 200 MG/10 ML 10 ML UNIT-DOSE CUPS PO PRN ×2 (06:23→21:11)
[2018-04-12 06:49] LABS: ALBUMIN 3.6 g/dl (3.4-5.0); ALK PHOS 77 U/L (45-117); ANION GAP 9 MMOL/L (8-16); BILIRUBIN,TOTAL 0.4 mg/dL (0.2-1); BLOOD UREA NITROGEN 8 mg/dL (7-18); CALCIUM 8.4 mg/dL (8.5-10.1); CHLORIDE 97 mmol/L (98-107); CO2 28 mmol/L (21-32); GLUCOSE,RANDOM 98 mg/dL (74-106); POTASSIUM 3.5 mmol/L (3.5-5.1); SGOT/AST 36 U/L (15-37); SGPT/ALT 25 U/L (13-61); SODIUM 134 mmol/L (136-145)
[2018-04-12] MEDS ORDERED: ALPRAZolam 0.25 MG TABLET PO SCH ×2 (08:02→08:45)
[2018-04-12] MEDS ORDERED: LOSARTAN POTASSIUM 25 MG TABLET PO SCH ×3 (08:03→10:00)
[2018-04-12] MEDS ORDERED: amLODIPine BESYLATE 10 MG TABLET (FP) PO SCH ×3 (08:03→10:00)
[2018-04-12] MEDS: DOCUSATE SODIUM 100 MG CAPSULE (FP) PO SCH ×2 (09:20→21:11)
[2018-04-12] MEDS ORDERED: PT OWN MED DRAWER 7, Y5N ONE (09:52)
[2018-04-12] MEDS: ALBUTEROL SO4 8 GM HFA INHALER IH SCH ×2 (09:54→13:09)
[2018-04-12] MEDS ORDERED: PREGABALIN 75 MG CAPSULE PO SCH (10:00)
[2018-04-12] MEDS ORDERED: traZODone HCL 50 MG TABLET (FP) PO SCH (10:00)
[2018-04-12] MEDS ORDERED: BUDESONIDE/FORMETEROL FUMARATE 160/4.5 mcg INHALER IH SCH (10:00)
[2018-04-12] MEDS ORDERED: LORATADINE 10 MG TABLET PO SCH (10:00)
--- NOTE | 2018-04-12 10:05 | PN ---
Physical Exam: SUBJECTIVE: Patient seen and examined at the bedside. tells me he is aggravated today. feeling anxious. wants to go home. discussed with him poc and plan is to get him home soon. denies chest pain, denies shortness of breath OBJECTIVE: bp elevated, heart rate elevated. will do ekg Vital Signs Period Temp Pulse Resp BP Sys/Pozo Pulse Ox Last 24 Hr 98.6 F-99.6 F 112-155 14-23 124-167/68-127 96-96 GENERAL: The patient is awake, alert, and fully oriented, in no acute distress. HEAD: Normal with no signs of trauma. EYES: PERRL, extraocular movements intact, sclera anicteric, conjunctiva clear. No ptosis. ENT: Ears normal, nares patent, oropharynx clear without exudates, moist mucous membranes. NECK: Trachea midline, full range of motion, supple. LUNGS: Breath sounds equal, diminished bilaterally HEART: tachycardiac 120s ABDOMEN: Soft, nontender, nondistended, normoactive bowel sounds, no guarding, EXTREMITIES: 2+ pulses, warm, well-perfused, no edema. NEUROLOGICAL: PSYCH: Normal mood, normal affect. SKIN: dressing intact Laboratory Results - last 24 hr 04/12/18 04/12/18 05:30 05:30 WBC 11.5 H RBC 3.88 L Hgb 11.9 Hct 35.7 MCV 92.1 MCH 30.7 MCHC 33.4 RDW 14.6 Plt Count 296 MPV 7.9 D Absolute Neuts (auto) 8.3 H Neutrophils % 72.2 Lymphocytes % 14.7 Monocytes % 11.1 H Eosinophils % 1.3 Basophils % 0.7 Nucleated RBC % 0 Sodium 134 L Potassium 3.5 Chloride 97 L Carbon Dioxide 28 Anion Gap 9 BUN 8 Creatinine 1.0 Creat Clearance w eGFR > 60 Random Glucose 98 Calcium 8.4 L Total Bilirubin 0.4 AST 36 ALT 25 Alkaline Phosphatase 77 Total Protein 8.0 Albumin 3.6 Active Medications Generic Name Dose Route Start Last Admin Trade Name Freq PRN Reason Stop Dose Admin Acetaminophen 650 mg 04/11/18 19:41 Tylenol - PO Q6H PRN PAIN LEVEL 6-10 Albuterol Sulfate 2 puff 04/11/18 22:00 04/12/18 09:54 Ventolin Hfa Inhaler - IH 2 puff QID [facility] Administration Albuterol/Ipratropium 1 amp 04/11/18 22:25 Duoneb - NEB Q6H PRN SHORTNESS OF BREATH Alprazolam 0.5 mg 04/12/18 08:45 04/12/18 09:20 Xanax - PO 0.5 mg BID@0700,1900 [facility] Administration Amlodipine Besylate 10 mg 04/12/18 08:45 04/12/18 09:20 Norvasc - PO 10 mg AM [facility] Administration Budesonide/Formoterol Fumarate 1 puff 04/12/18 10:00 04/12/18 09:53 Symbicort 160/4.5mcg - IH 1 puff DAILY [facility] Administration Diazepam 5 mg 04/11/18 19:41 04/12/18 01:51 Valium - PO 5 mg Q8H PRN Administration MUSCLE SPASMS Docusate Sodium 100 mg 04/11/18 22:00 04/12/18 09:20 Colace - PO 100 mg BID [facility] Administration Guaifenesin 10 ml 04/11/18 16:41 04/12/18 06:23 Robitussin - PO 10 ml Q8H PRN Administration COUGH Hydromorphone HCl 10 mg 04/11/18 19:41 04/12/18 03:50 Dilaudid Ink Blender - NATURAL GAS ENGINEER 04/18/18 13:08 10 mg NATURAL GAS ENGINEER [facility] Administration Protocol Loratadine 10 mg 04/12/18 10:00 04/12/18 09:49 Claritin - PO 10 mg DAILY [facility] Administration Losartan Potassium 25 mg 04/12/18 08:45 04/12/18 09:20 Cozaar - PO 25 mg AM [facility] Administration Montelukast Sodium 10 mg 04/11/18 22:00 04/11/18 22:29 Singulair - PO 10 mg HS [facility] Administration Ondansetron HCl 4 mg 04/11/18 19:41 Zofran Injection IVPUSH Q6H PRN NAUSEA AND/OR VOMITING Ondansetron HCl 4 mg 04/11/18 19:41 Zofran Injection IVPUSH Q4H PRN NAUSEA AND/OR VOMITING Pregabalin 75 mg 04/12/18 10:00 04/12/18 09:52 Lyrica - PO 75 mg DAILY [facility] Administration Rosuvastatin Calcium 5 mg 04/11/18 22:00 04/11/18 23:06 Crestor - PO 5 mg HS [facility] Administration Trazodone HCl 50 mg 04/12/18 10:00 04/12/18 09:52 Desyrel - PO 50 mg DAILY [facility] Administration ASSESSMENT/PLAN: Patient is a 47 y/o man with a PMHx of: recurrent L5-S1 Spinal Stenosis, LE Radiculopathy, HTN, COPD, Asthma, Sleep Apnea (no CPAP), Depression. s/p Removal of Hardware, Revision Laminectomy. Back Surgery: s/p Removal of Hardware, revision Laminectomy incentive spirometer monitor labs, vitals, pain management continue lyrica neuro checks physical therapy bowel regimen Cardiovascular: Hypertension/hyperlipidemia Continue Norvasc 10, Cozaar 25, Crestor 25 Tachycardia. will do ekg. may need beta lily added for tachycardia. Hypertension is uncontrolled. but has not yet taken his a.m. meds Pulmonary COPD Asthma Continue Albuterol MDI, Symbicort, Claritin, Singulair Psych: Depression Continue Trazodone, Xanax fen PO fluids as tolerated Replete lytes prn Low Na Diet DVT ppx SCDs Visit type - Emergency Visit Emergency Visit: Yes ED Registration Date: 04/10/18 Care time: The patient presented to the Emergency Department on the above date and was hospitalized for further evaluation of their emergent condition. - New Patient This patient is new to me today: No - Critical Care Critical Care patient: No - Discharge Referral Referred to [facility] Med P.C.: No
--- NOTE | 2018-04-12 12:04 | PN ---
Progress Note (short form) - Note Progress Note: POD#2 Pt seen this am, complaining of not sleeping well. Pain improved with Dilaudid LOGGING SPECIALIST. Passing flatus and tolerating a diet. No headaches. OOB and ambulate with PT yesterday. Voiding without difficulty. Vital Signs Period Temp Pulse Resp BP Sys/Pozo Pulse Ox Last 24 Hr 98.6 F-99.6 F 112-155 14-23 124-167/68-127 96-96 PARISA: Serosangrenous 180 ml GEN: appears comfortable Back: dressing changed(saturated with blood tinged fluid) since placed yesterday. No erythema, mild drainage to wound in the superior aspect with palpation. LE: 5/5 dorsi/plantar flexion CBC, BMP 04/12/18 05:30 04/12/ 05:30 A/P: 47 yo male s/p s/p revision of laminectomy L5-S1 Continue LOGGING SPECIALIST today and change to oral pain medications daily, the patient states that he was taking 10mg x5 pills daily of percocoet Stool softners as needed Increased his xanax dose today IV benadryl x1 for itching to around the wound OOB and ambulate with physical therapy Keep dressing clean and dry, Hemovac to remain inplace and off suction. Monitor outpt. D/w. Dr. Harrell
--- NOTE | 2018-04-12 12:08 | PATH ---
Surgical Pathology Report Patient Name: LARRY DYSON Med. Rec. #: [id number] /Age/Gender: 1970 (Age: 47) / M Account: [id number] Location: ICU APPLIED BEHAVIOR SPECIALIST Taken: 04/10/2018 Received: 04/11/2018 Reported: 04/12/2018 Physicians: Gabriel Harrell M.D. Specimen(s) Received REMOVED HARDWARE Clinical History Lumbar spinal stenosis Final Diagnosis Hardware, removal: Surgical hardware. MAcroscopic diagnosis. Electronically Signed Gabriella Garcia M.D. Gross Description Received fresh labeled "removed hardware," are 2 cabrera metallic rods averaging 4.1 cm in length. Also received within the same container are 8 metallic screws ranging from 0.4-5.3 cm in length. No soft tissue is present. No sections are submitted, gross only. DL/04/11/2018 saudi04/11/2018
--- NOTE | 2018-04-12 12:22 | PN ---
Teaching Attending Note Name of Resident: Arsenio Olson ATTENDING PHYSICIAN STATEMENT I saw and evaluated the patient. I reviewed the resident's note and discussed the case with the resident. I agree with the resident's findings and plan as documented. SUBJECTIVE: Pt seen and examined in the ICU. Asking for more pain medications. No fevers recorded. OBJECTIVE: Vital Signs Period Temp Pulse Resp BP Sys/Pozo Pulse Ox Last 24 Hr 98.6 F-99.6 F 112-155 14-23 124-167/68-127 96-96 Intake & Output 04/09/18 04/10/18 04/11/18 04/12/18 23:59 23:59 23:59 23:59 Intake Total 3650 3266 1000 Output Total 1150 5185 835 Balance 2500 -1919 165 Weight 102.058 kg Gen: NAD at rest Heart: RRR Lung: decreased breath sounds at the bases Abd: soft, nontender Ext: no edema Drain serosanguinous CBC, BMP 04/12/18 05:30 04/12/18 05:30 Active Medications Acetaminophen (Tylenol -) 650 mg PO Q6H PRN PRN Reason: PAIN LEVEL 6-10 Albuterol Sulfate (Ventolin Hfa Inhaler -) 2 puff IH QID [facility] Last Admin: 04/12/18 09:54 Dose: 2 puff Albuterol/Ipratropium (Duoneb -) 1 amp NEB Q6H PRN PRN Reason: SHORTNESS OF BREATH Alprazolam (Xanax -) 0.5 mg PO BID@0700,1900 [facility] Last Admin: 04/12/18 09:20 Dose: 0.5 mg Amlodipine Besylate (Norvasc -) 10 mg PO AM [facility] Last Admin: 04/12/18 09:20 Dose: 10 mg Budesonide/Formoterol Fumarate (Symbicort 160/4.5mcg -) 1 puff IH DAILY [facility] Last Admin: 04/12/18 09:53 Dose: 1 puff Diazepam (Valium -) 5 mg PO Q8H PRN PRN Reason: MUSCLE SPASMS Last Admin: 04/12/18 01:51 Dose: 5 mg Docusate Sodium (Colace -) 100 mg PO BID [facility] Last Admin: 04/12/18 09:20 Dose: 100 mg Guaifenesin (Robitussin -) 10 ml PO Q8H PRN PRN Reason: COUGH Last Admin: 04/12/18 06:23 Dose: 10 ml Hydromorphone HCl (Dilaudid Linderman Operator -) 10 mg MIRROR MACHINE FEEDER MIRROR MACHINE FEEDER [facility]; Protocol Stop: 04/18/18 13:08 Last Admin: 04/12/18 03:50 Dose: 10 mg Loratadine (Claritin -) 10 mg PO DAILY [facility] Last Admin: 04/12/18 09:49 Dose: 10 mg Losartan Potassium (Cozaar -) 25 mg PO AM [facility] Last Admin: 04/12/18 09:20 Dose: 25 mg Montelukast Sodium (Singulair -) 10 mg PO HS [facility] Last Admin: 04/11/18 22:29 Dose: 10 mg Ondansetron HCl (Zofran Injection) 4 mg IVPUSH Q6H PRN PRN Reason: NAUSEA AND/OR VOMITING Ondansetron HCl (Zofran Injection) 4 mg IVPUSH Q4H PRN PRN Reason: NAUSEA AND/OR VOMITING Pregabalin (Lyrica -) 75 mg PO DAILY [facility] Last Admin: 04/12/18 09:52 Dose: 75 mg Rosuvastatin Calcium (Crestor -) 5 mg PO HS [facility] Last Admin: 04/11/18 23:06 Dose: 5 mg Trazodone HCl (Desyrel -) 50 mg PO DAILY [facility] Last Admin: 04/12/18 09:52 Dose: 50 mg ASSESSMENT AND PLAN: Recurrent L5-S1 Spinal Stenosis with neurogenic claudication and radiculopathy s/p DEMARCUS/Revision Laminectomy/Posterior Instrumentation COPD HTN Hyperlipidemia - pain control - incentive spirometry - bowel regimen - monitor drain output - rehab/PT - inhaled bronchodilators - benadryl as needed - DVT prophylaxis - can monitor on floor
--- NOTE | 2018-04-12 12:42 | EKG ---
Test Reason : Blood Pressure : / mmHG Vent. Rate : 130 BPM Atrial Rate : 130 BPM P-R Int : 098 ms QRS Dur : 140 ms QT Int : 348 ms P-R-T Axes : 063 015 025 degrees QTc Int : 512 ms SINUS TACHYCARDIA WITH SHORT NE RIGHT BUNDLE BRANCH BLOCK ABNORMAL ECG NO PREVIOUS ECGS AVAILABLE Confirmed by ROSE MARIE HAWK MD ([id number]) on 04/12/2018 12:41:57 PM [facility] Confirmed By:ROSE MARIE HAWK MD
[2018-04-12] MEDS ORDERED: ONDANSETRON 4 MG/2 ML VIAL IVPUSH PRN ×2 (13:26)
[2018-04-12] MEDS ORDERED: ALBUTEROL SO4 2.5/IPRATROPIUM 0.5 INH SOL 3 ML VIAL.NEB. NEB PRN (13:26)
[2018-04-12] MEDS ORDERED: ACETAMINOPHEN 325 MG TABLET (FP) PO PRN (13:26)
[2018-04-12] MEDS ORDERED: HYDROmorphone *PCA* 10MG/50ML DISP.SYRIN PCA SCH (13:26)
[2018-04-12] MEDS ORDERED: ALBUTEROL SO4 8 GM HFA INHALER IH PRN (14:00)
[2018-04-12] MEDS ORDERED: metoPROLOL SUCCINATE 25 MG TAB.SR.24H (FP) PO ONE (15:42)
--- NOTE | 2018-04-12 20:36 | PN ---
Physical Exam: SUBJECTIVE: Patient seen and examined No acute overnight events. reported by nursing staff that the patient has removed on his own volition the drain placed by surgery. surgery is monitoring, but will not place him back in OR as of now. patient doing well and ambulating. will be transferred to the floor today OBJECTIVE: Vital Signs Period Temp Pulse Resp BP Sys/Pozo Pulse Ox Last 24 Hr 98.6 F-99.1 F 93-155 14-22 129-167/68-127 96-96 GENERAL: The patient is awake, alert, and fully oriented, in no acute distress. HEAD: Normal with no signs of trauma. EYES: PERRL, extraocular movements intact, sclera anicteric, conjunctiva clear. No ptosis. ENT: Ears normal, nares patent, oropharynx clear without exudates, moist mucous membranes. NECK: Trachea midline, full range of motion, supple. LUNGS: Breath sounds equal, clear to auscultation bilaterally, no wheezes, no crackles, no accessory muscle use. HEART: tachycardia rate and rhythm, S1, S2 without murmur, rub or gallop. ABDOMEN: Soft, nontender, nondistended, normoactive bowel sounds, no guarding, no rebound, no hepatosplenomegaly, no masses. EXTREMITIES: 2+ pulses, warm, well-perfused, no edema. NEUROLOGICAL: Cranial nerves II through XII grossly intact. Normal speech, gait not observed. PSYCH: Normal mood, normal affect. SKIN: Warm, dry, normal turgor, no rashes or lesions noted Back: incision bandages. drain in place Laboratory Results - last 24 hr 04/12/18 04/12/18 05:30 05:30 WBC 11.5 H RBC 3.88 L Hgb 11.9 Hct 35.7 MCV 92.1 MCH 30.7 MCHC 33.4 RDW 14.6 Plt Count 296 MPV 7.9 D Absolute Neuts (auto) 8.3 H Neutrophils % 72.2 Lymphocytes % 14.7 Monocytes % 11.1 H Eosinophils % 1.3 Basophils % 0.7 Nucleated RBC % 0 Sodium 134 L Potassium 3.5 Chloride 97 L Carbon Dioxide 28 Anion Gap 9 BUN 8 Creatinine 1.0 Creat Clearance w eGFR > 60 Random Glucose 98 Calcium 8.4 L Total Bilirubin 0.4 AST 36 ALT 25 Alkaline Phosphatase 77 Total Protein 8.0 Albumin 3.6 Active Medications Generic Name Dose Route Start Last Admin Trade Name Freq PRN Reason Stop Dose Admin Acetaminophen 650 mg 04/12/18 13:26 Tylenol - PO Q6H PRN PAIN LEVEL 6-10 Albuterol Sulfate 2 puff 04/12/18 14:00 Ventolin Hfa Inhaler - IH Q6H PRN SHORTNESS OF BREATH Albuterol/Ipratropium 1 amp 04/12/18 13:26 Duoneb - NEB Q6H PRN SHORTNESS OF BREATH Alprazolam 0.5 mg 04/12/18 19:00 Xanax - PO BID@0700,1900 [facility] Amlodipine Besylate 10 mg 04/13/18 07:00 Norvasc - PO AM [facility] Budesonide/Formoterol Fumarate 1 puff 04/13/18 10:00 Symbicort 160/4.5mcg - IH DAILY [facility] Diazepam 5 mg 04/12/18 13:26 Valium - PO Q8H PRN MUSCLE SPASMS Docusate Sodium 100 mg 04/12/18 22:00 Colace - PO BID [facility] Guaifenesin 10 ml 04/12/18 13:26 Robitussin - PO Q8H PRN COUGH Hydromorphone HCl 10 mg 04/12/18 13:26 Dilaudid Repair Servicer - CLIENT EXPERIENCE CONSULTANT 04/18/18 13:08 CLIENT EXPERIENCE CONSULTANT [facility] Protocol Loratadine 10 mg 04/13/18 10:00 Claritin - PO DAILY [facility] Losartan Potassium 25 mg 04/13/18 07:00 Cozaar - PO AM [facility] Montelukast Sodium 10 mg 04/12/18 22:00 Singulair - PO HS [facility] Ondansetron HCl 4 mg 04/12/18 13:26 Zofran Injection IVPUSH Q6H PRN NAUSEA AND/OR VOMITING Ondansetron HCl 4 mg 04/12/18 13:26 Zofran Injection IVPUSH Q4H PRN NAUSEA AND/OR VOMITING Pregabalin 75 mg 04/13/18 10:00 Lyrica - PO DAILY [facility] Rosuvastatin Calcium 5 mg 04/12/18 22:00 Crestor - PO HS [facility] Trazodone HCl 50 mg 04/13/18 10:00 Desyrel - PO DAILY [facility] ASSESSMENT/PLAN: 47 year old male hx of COPD, hypertension, anxiety and recurrent L5-S1 spinal stenosis with neurogenic claudication and LE radiculopathy is s/p removal of L5- S1 hardware, POD2 Had the following procedures: 1. Removal of hardware L5-S1. 2. Inspection L5-S1 fusion mass. 3. Revision laminectomy L5. 4. Laminectomy S1. 5. Bilateral facetectomies/osteotomies L5. 6. Posterior instrumentation L5-S1. 7. Posterolateral arthrodesis L5-S1. 8. Bone autograft. 9. Bone allograft. 10. Iliac crest/pelvis bone marrow aspirate. 11. Stem cell autograft. 12. Intra-operative neural monitoring. 13. Intra-operative biplanar fluoroscopy Neuro: patient is A&Ox3 active Monitor mental status Neurochecks q4h for motor strength and sensation Cardiovascular: -patient is tachycardic, likely due to pain -monitor heart rate and rhythm Pulmonary: -incentive spirometry recommended Gastrointestinal: -Had flatus, able to tolerate PO Musculoskeletal: POD1 L5-S1 hardware removal -pain control with CLIENT EXPERIENCE CONSULTANT -had PT yesterday Prophylaxis SCDs Dispo: To be transferred to the floors Visit type - Emergency Visit Emergency Visit: Yes ED Registration Date: 04/10/18 Care time: The patient presented to the Emergency Department on the above date and was hospitalized for further evaluation of their emergent condition. - New Patient This patient is new to me today: No - Critical Care Critical Care patient: Yes Total Critical Care Time (in minutes): 36 Critical Care Statement: The care of this patient involved high complexity decision making to prevent further life threatening deterioration of the patient 's condition and/or to evaluate & treat vital organ system(s) failure or risk of failure. - Discharge Referral Referred to [facility] No
[2018-04-12] MEDS: MONTELUKAST NA 10 MG TABLET PO SCH (21:11)
[2018-04-12] MEDS: ALPRAZolam 0.25 MG TABLET PO SCH (21:54)
[2018-04-13] MEDS: diazePAM 5 MG TABLET PO PRN ×2 (00:12→09:52)
[2018-04-13] MEDS: ALPRAZolam 0.25 MG TABLET PO SCH ×2 (06:58→18:55)
[2018-04-13] MEDS: LOSARTAN POTASSIUM 25 MG TABLET PO SCH (06:58)
[2018-04-13] MEDS: amLODIPine BESYLATE 10 MG TABLET (FP) PO SCH (06:58)
[2018-04-13] MEDS ORDERED: PT OWN MED DRAWER 7, Y5N ONE ×2 (09:44→13:13)
[2018-04-13] MEDS: DOCUSATE SODIUM 100 MG CAPSULE (FP) PO SCH ×2 (09:46→23:21)
[2018-04-13] MEDS: traZODone HCL 50 MG TABLET (FP) PO SCH (09:46)
[2018-04-13] MEDS: LORATADINE 10 MG TABLET PO SCH (09:46)
[2018-04-13] MEDS: PREGABALIN 75 MG CAPSULE PO SCH (09:47)
--- NOTE | 2018-04-13 09:47 | CON.CARD ---
Consult Consult Specialty:: Cardiology Referred by:: Hospitalist Reason for Consultation:: Cardiac evaluation - History of Present Illness Chief Complaint: Tachycardia History of Present Illness: Patient is a 47 year old male with underlying history of HTN and COPD who recently had L5-S1 laminectomy revision after removal of hardware in addition to bone autograft and stem cell autograft with Dr. Harrell now post operative complained of post surgical pain and sinus tachycardia on ECG. He denies chest pain, SOB or palpitations. He denies paroxysmal nocturnal dyspnea or orthopnea. He denies fever or chills. He denies nausea, vomiting, diarrhea or abdominal pain. He denies headache or lightheadedness. - History Source History Provided By: Patient, Medical Record Limitations to Obtaining History: No Limitations - Past Medical History Cardio/Vascular: Yes: HTN Pulmonary: Yes: COPD - Past Surgical History Past Surgical History: Yes: Laminectomy Additional Surgical History: orthopedic surgery - Alcohol/Substance Use Hx Alcohol Use: Yes (occas) History of Substance Use: reports: None - Smoking History Smoking history: Current some day smoker Home Medications - Allergies Allergies/Adverse Reactions: Allergies Allergy/AdvReac Type Severity Reaction Status Date / Time adhesive tape Allergy Rash Verified 04/10/18 07:02 No Known Drug Allergies Allergy Verified 04/10/18 07:02 plum Allergy Verified 04/12/18 12:15 strawberry Allergy Verified 04/12/18 12:15 glue Allergy "itchy" Uncoded 04/10/18 07:02 red apple Allergy Uncoded 04/12/18 12:15 - Home Medications Home Medications: Ambulatory Orders Albuterol Sulfate Inhaler - [Ventolin Hfa Inhaler -] 1 - 2 inh PO QID 04/07/18 Alprazolam [Xanax] 0.25 mg PO BID 04/07/18 Amlodipine Besylate [Norvasc -] 10 mg PO DAILY 04/07/18 Budesonide/Formeterol Fumarate [SYMBICORT 160/4.5mcg -] 1 inh PO DAILY 04/07/18 Cetirizine HCl [Zyrtec -] 10 mg PO DAILY 04/07/18 Ipratropium/Albuterol Sulfate [Combivent Respimat Inhal Harmony] 4 gm IH DAILY 02/25 Losartan Potassium [Cozaar -] 25 mg PO DAILY 04/07/18 Montelukast Sodium [Singulair] 10 mg PO HS 04/07/18 Oxycodone HCl/Acetaminophen [Percocet 10-325 mg Tablet] 1 each PO PRN 04/07/18 Pregabalin [Lyrica -] 75 mg PO DAILY 04/07/18 Rosuvastatin [Crestor -] 5 mg PO HS 04/07/18 traZODone HCL [Trazodone HCl] 50 mg PO DAILY 04/07/18 Family Disease History - Family Disease History Other Family History: History of HTN Review of Systems - Review of Systems Constitutional: denies: Chills, Fever Cardiovascular: denies: Chest Pain, Palpitations, Shortness of Breath Respiratory: denies: Cough, Hemoptysis, Orthopnea, PND, SOB, SOB on Exertion Gastrointestinal: denies: Abdominal Pain, Constipation, Diarrhea, Melena, Nausea , Rectal Bleeding, Vomiting Genitourinary: denies: Dysuria, Hematuria Musculoskeletal: reports: Back Pain. denies: Joint Pain Neurological: denies: Dizziness, Headache, Seizure, Syncope Vital Signs: Vital Signs Temperature 98 F 04/13/18 04:53 Pulse Rate 111 H 04/13/18 04:53 Respiratory Rate 20 04/13/18 04:53 Blood Pressure 144/84 04/13/18 04:53 O2 Sat by Pulse Oximetry (%) 96 04/12/18 21:00 Eyes: Yes: PERRL HENT: Yes: Atraumatic Neck: Yes: Supple Respiratory: Yes: CTA Bilaterally Gastrointestinal: Yes: Normal Bowel Sounds, Soft. No: Tenderness Cardiovascular: Yes: Regular Rate and Rhythm JVD: No Carotid Bruit: No PMI: Non-Displaced Heart Sounds: Yes: S1, S2. No: Gallop Murmur: No: Systolic Murmur, Diastolic Murmur Edema: No - Other Data Labs, Other Data: CBC, BMP 04/12/18 05:30 04/12/18 05:30 Sinus tachycardia with RBBB Imaging - Results EKG: Report Reviewed Problem List - Problems (1) HTN (hypertension) Code(s): I10 - ESSENTIAL (PRIMARY) HYPERTENSION Qualifiers: Hypertension type: essential hypertension Qualified Code(s): I10 - Essential (primary) hypertension (2) COPD (chronic obstructive pulmonary disease) Code(s): J44.9 - CHRONIC OBSTRUCTIVE PULMONARY DISEASE, UNSPECIFIED Qualifiers: COPD type: unspecified COPD Qualified Code(s): J44.9 - Chronic obstructive pulmonary disease, unspecified (3) Sinus tachycardia Code(s): R00.0 - TACHYCARDIA, UNSPECIFIED (4) S/P lumbar fusion Code(s): Z98.1 - ARTHRODESIS STATUS Assessment/Plan 1. Sinus tachycardia with underlying RBBB, likely due to post operative pain 2. HTN 3. COPD PLAN: 1. Continue post operative care. Analgesia 2. Physical therapy 3. Echocardiography to assess LV/RV and valvular function 4. Continue Amlodipine and Losartan. 5. Continue Crestor Further plans are to follow Carmine Ybarra MD
[2018-04-13] MEDS: BUDESONIDE/FORMETEROL FUMARATE 160/4.5 mcg INHALER IH SCH (09:48)
--- NOTE | 2018-04-13 09:48 | PN ---
Progress Note (short form) - Note Progress Note: Surgery POD #3 Multilevel Lumbar laminectomies/revision and fusion patient seen and examined at bedside c/o sore throat. Patient states he slept better last night after his Xanax dose was adjusted. He is oob with assist, tolerating his diet and voiding/moving his bowels. He denies any CP, SOB, N/V, fever or chills. His drain fell out yesterday. 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 Vital Signs Temp 98 F 04/13/18 04:53 Pulse 111 H 04/13/18 04:53 Resp 20 04/13/18 04:53 BP 144/84 04/13/18 04:53 Pulse Ox 96 04/12/18 21:00 Intake & Output 04/12/18 04/12/18 04/13/18 11:59 23:59 11:59 Intake Total 1000 400 Output Total 835 1075 800 Balance 165 -675 -800 Weight 225 lb Intake: Oral 1000 400 Output: Drainage 85 Lower Back 85 Urine 750 1075 800 Void 750 1075 800 Other: Voiding Method Urinal Urinal Bowel Movement Yes # Bowel Movements 1 Height 5 ft 9 in Body Mass Index (BMI) 33.2 CBC, BMP 03 05:30 04/12/18 05:30 PE: A&Ox3, NAD Unlabored resp on RA Lumbar incision C/D/I with very small area at proximal incision with superficial separation and oozing SS d/c, surrounding tissue intact with no evidence or erythema, edema or collection. He is very tender to palpation along the margins of the incision but there is no evidence of collection, active d/c or puss. drain site clean and dry with no d/c. LE compartments soft supple and non-tender with +2 DP pulses and 5/5 Resisted dorsi/plantar flexion. Problem List - Problems (1) S/P lumbar fusion Assessment/Plan: POD #3 patient doing well. Sore throat likely 2/2 ET tube during surgery. 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 Evaluation and plan discussed with Gabriel Harrell Code(s): Z98.1 - ARTHRODESIS STATUS
[2018-04-13] MEDS ORDERED: oxyCODONE HCL 5 MG TABLET PO PRN (10:28)
--- NOTE | 2018-04-13 10:47 | PN ---
Physical Exam: SUBJECTIVE: Patient seen and examined at the bedside. feels well, in no acute distress. 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 HEAD: Normal with no signs of trauma. EYES: PERRL, extraocular movements intact, sclera anicteric, conjunctiva clear. No ptosis. ENT: Ears normal, nares patent, oropharynx clear without exudates, moist mucous membranes. NECK: Trachea midline, full range of motion, supple. HEART: tachycardiac 120s ABDOMEN: Soft, nontender, nondistended, normoactive bowel sounds, no guarding, EXTREMITIES: 2+ pulses, warm, well-perfused, no edema. NEUROLOGICAL: PSYCH: Normal mood, normal affect. SKIN: dressing intact Active Medications Generic Name Dose Route Start Last Admin Trade Name Freq PRN Reason Stop Dose Admin Acetaminophen 650 mg 04/12/18 13:26 Tylenol - PO Q6H PRN PAIN LEVEL 6-10 Albuterol Sulfate 2 puff 04/12/18 14:00 Ventolin Hfa Inhaler - IH Q6H PRN SHORTNESS OF BREATH Albuterol/Ipratropium 1 amp 04/12/18 13:26 Duoneb - NEB Q6H PRN SHORTNESS OF BREATH Alprazolam 0.5 mg 04/12/18 19:00 04/13/18 06:58 Xanax - PO 0.5 mg BID@0700,1900 [facility] Administration Amlodipine Besylate 10 mg 04/13/18 07:00 04/13/18 06:58 Norvasc - PO 10 mg AM [facility] Administration Benzocaine/Menthol 1 each 04/13/18 09:39 Cepacol Lozenge - MM PRN PRN SORE THROAT Budesonide/Formoterol Fumarate 1 puff 04/13/18 10:00 04/13/18 09:48 Symbicort 160/4.5mcg - IH 1 puff DAILY [facility] Administration Diazepam 5 mg 04/12/18 13:26 04/13/18 09:52 Valium - PO 5 mg Q8H PRN Administration MUSCLE SPASMS Docusate Sodium 100 mg 04/12/18 22:00 04/13/18 09:46 Colace - PO 100 mg BID [facility] Administration Guaifenesin 10 ml 04/12/18 13:26 04/12/18 21:11 Robitussin - PO 10 ml Q8H PRN Administration COUGH Loratadine 10 mg 04/13/18 10:00 04/13/18 09:46 Claritin - PO 10 mg DAILY [facility] Administration Losartan Potassium 25 mg 04/13/18 07:00 04/13/18 06:58 Cozaar - PO 25 mg AM [facility] Administration Montelukast Sodium 10 mg 04/12/18 22:00 04/12/18 21:11 Singulair - PO 10 mg HS [facility] Administration Ondansetron HCl 4 mg 04/12/18 13:26 Zofran Injection IVPUSH Q6H PRN NAUSEA AND/OR VOMITING Ondansetron HCl 4 mg 04/12/18 13:26 Zofran Injection IVPUSH Q4H PRN NAUSEA AND/OR VOMITING Oxycodone HCl 10 mg 04/13/18 10:30 Oxycontin - PO BID [facility] Oxycodone HCl 10 mg 04/13/18 10:28 Roxicodone - PO Q6H PRN PAIN LEVEL 7 - 10 Pregabalin 75 mg 04/13/18 10:00 04/13/18 09:47 Lyrica - PO 75 mg DAILY [facility] Administration Rosuvastatin Calcium 5 mg 04/12/18 22:00 Crestor - PO HS [facility] Trazodone HCl 50 mg 04/13/18 10:00 04/13/18 09:46 Desyrel - PO 50 mg DAILY [facility] Administration ASSESSMENT/PLAN: Patient is a 47 y/o man with a PMHx of: recurrent L5-S1 Spinal Stenosis, LE Radiculopathy, HTN, COPD, Asthma, Sleep Apnea (no CPAP), Depression. s/p Removal of Hardware, Revision Laminectomy. Back Surgery: s/p Removal of Hardware, revision Laminectomy incentive spirometer monitor labs, vitals, pain management continue lyrica neuro checks physical therapy bowel regimen Cardiovascular: Hypertension/hyperlipidemia Continue Norvasc 10, Cozaar 25, Crestor 25. given toprol 25 overnight for tachycardia. Tachycardia. ekg shows rbbb and short pr. Hypertension. improving. Pulmonary COPD Asthma Continue Albuterol MDI, Symbicort, Claritin, Singulair Psych: Depression Continue Trazodone, Xanax fen PO fluids as tolerated Replete lytes prn Low Na Diet DVT ppx teds Visit type - Emergency Visit Emergency Visit: Yes ED Registration Date: 04/10/18 Care time: The patient presented to the Emergency Department on the above date and was hospitalized for further evaluation of their emergent condition. - New Patient This patient is new to me today: No - Critical Care Critical Care patient: No - Discharge Referral Referred to [facility] Med [facility].: No
[2018-04-13] MEDS: guaiFENesin 200 MG/10 ML 10 ML UNIT-DOSE CUPS PO PRN (11:27)
[2018-04-13] MEDS: oxyCODONE HCL 10 MG SUSTAINED ACTING TABLET PO SCH ×2 (11:30→23:21)
[2018-04-13] MEDS: BENZOCAINE/MENTH/CETYLPYRD CL 1 EACH LOZENGE MM PRN ×2 (13:17→18:56)
--- NOTE | 2018-04-13 15:58 | ECHO ---
Name: LARRY DYSON Exam:Adult Echocardiogram Study Date: 04/13/2018 12:42 PM Age: 47 yrs Reason For Study: Tachycardia Height: 69 in Weight: 225 lb BSA: 2.2 m2 MMode/2D Measurements & Calculations IVSd: 0.98 cm Ao root diam: 3.6 cm LVIDd: 4.0 cm LA dimension: 3.6 cm LVIDs: 2.4 cm ACS: 2.0 cm LVPWd: 1.1 cm IVSs: 1.2 cm LVPWs: 1.4 cm EDV(Teich): 70.3 ml ESV(Teich): 21.0 ml Doppler Measurements & Calculations MV E max geraldine: 61.5 cm/sec Ao V2 max: 142.5 cm/sec MV A max geraldine: 70.0 cm/sec Ao max P.1 mmHg MV E/A: 0.88 Ao V2 mean: 105.3 cm/sec Ao mean P.0 mmHg Ao V2 VTI: 20.3 cm PA V2 max: 141.2 cm/sec Med Peak E' Geraldine: 7.3 cm/sec PA max P.0 mmHg Med E/e': 8.4 PA V2 mean: 102.0 cm/sec Lat Peak E' Geraldine: 9.6 cm/sec PA mean P.6 mmHg Lat E/e': 6.4 PA V2 VTI: 20.8 cm Procedure A complete two-dimensional transthoracic echocardiogram was performed (2D, M-mode, Doppler and color flow Doppler). Left Ventricle The left ventricular size, thickness and function are normal. The left ventricular ejection fraction is normal. Ejection Fraction = 60-65%. The left ventricular wall motion is normal. Right Ventricle The right ventricle is normal in size and function. Atria Normal left and right atrial size and function. Mitral Valve There is no mitral regurgitation noted. Tricuspid Valve There is trace tricuspid regurgitation. There was insufficient TR detected to calculate RV systolic p ressure. Aortic Valve The aortic valve is trileaflet. No hemodynamically significant valvular aortic stenosis. No aortic regurgitation is present. Pulmonic Valve There is no pulmonic valvular regurgitation. Great Vessels The aortic root is normal size. Pericardium/Pleura There is no pericardial effusion. Interpretation Summary The left ventricular size, thickness and function are normal The right ventricle is normal in size and function. There is trace tricuspid regurgitation. MD Serafin Boykin 04/13/2018 03:58 PM
[2018-04-13] MEDS: ROSUVASTATIN CA 5 MG TABLET (FP) PO SCH ×2 (16:13→23:21)
[2018-04-13] MEDS: ACETAMINOPHEN 1000 MG/100 ML VIAL (NON FORMULARY) IVPB SCH (17:47)
[2018-04-13] MEDS: ALBUTEROL SO4 8 GM HFA INHALER IH SCH ×2 (18:52→18:53)
[2018-04-13] MEDS: oxyCODONE HCL 5 MG TABLET PO PRN (20:19)
[2018-04-13] MEDS: MONTELUKAST NA 10 MG TABLET PO SCH (23:22)
[2018-04-14] MEDS: oxyCODONE HCL 5 MG TABLET PO PRN ×2 (02:37→06:44)
[2018-04-14] MEDS: LOSARTAN POTASSIUM 25 MG TABLET PO SCH (06:43)
[2018-04-14] MEDS: amLODIPine BESYLATE 10 MG TABLET (FP) PO SCH (06:43)
[2018-04-14] MEDS: ALPRAZolam 0.25 MG TABLET PO SCH (06:44)
--- NOTE | 2018-04-14 09:33 | PN ---
Progress Note (short form) - Note Progress Note: 47yo M s/p Multilevel Lumbar laminectomies/revision and fusion patient seen and examined at bedside. He is oob, tolerating his diet and voiding/moving his bowels. He denies any CP, SOB, N/V, fever or chills. 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 Pt states that he is eager to be discharged today. Last Vital Signs Temp Pulse Resp BP Pulse Ox 98.7 F 102 H 20 136/75 96 04/14/18 06:00 04/14/18 06:00 04/14/18 06:00 04/14/18 06:00 04/12/18 21:00 CBC, BMP 04/12/18 05:30 04/12/18 05:30 PE: A&Ox3, NAD Unlabored resp on RA Lumbar incision C/D/I with very small area at proximal incision with superficial separation and oozing SS d/c, surrounding tissue intact with no evidence or erythema, edema or collection. He is very tender to palpation along the margins of the incision but there is no evidence of collection, active d/c or puss. drain site clean and dry with no d/c. LE compartments soft supple and non-tender with +2 DP pulses and 5/5 Resisted dorsi/plantar flexion. Problem List - Problems (1) S/P lumbar fusion Assessment/Plan: Plan -pt is cleared from ortho for discharge -follow up with Dr. Harrell in 2 weeks as outpatient Code(s): Z98.1 - ARTHRODESIS STATUS
[2018-04-14] MEDS: oxyCODONE HCL 10 MG SUSTAINED ACTING TABLET PO SCH (10:02)
[2018-04-14] MEDS: DOCUSATE SODIUM 100 MG CAPSULE (FP) PO SCH (10:02)
[2018-04-14] MEDS: traZODone HCL 50 MG TABLET (FP) PO SCH (10:03)
[2018-04-14] MEDS: PREGABALIN 75 MG CAPSULE PO SCH (10:03)
[2018-04-14] MEDS: LORATADINE 10 MG TABLET PO SCH (10:03)
--- NOTE | 2018-04-14 10:03 | PN ---
Progress Note, Physician History of Present Illness: Post-op pain improving, ambulating and ready for d/c. - Current Medication List Current Medications: Active Medications Acetaminophen (Tylenol -) 650 mg PO Q6H PRN PRN Reason: PAIN LEVEL 6-10 Albuterol Sulfate (Ventolin Hfa Inhaler -) 2 puff IH Q6H PRN PRN Reason: SHORTNESS OF BREATH Albuterol/Ipratropium (Duoneb -) 1 amp NEB Q6H PRN PRN Reason: SHORTNESS OF BREATH Alprazolam (Xanax -) 0.5 mg PO BID@0700,1900 [facility] Last Admin: 04/14/18 06:44 Dose: 0.5 mg Amlodipine Besylate (Norvasc -) 10 mg PO AM [facility] Last Admin: 04/14/18 06:43 Dose: 10 mg Benzocaine/Menthol (Cepacol Lozenge -) 1 each MM PRN PRN PRN Reason: SORE THROAT Last Admin: 04/13/18 18:56 Dose: 1 each Budesonide/Formoterol Fumarate (Symbicort 160/4.5mcg -) 1 puff IH DAILY [facility] Last Admin: 04/13/18 09:48 Dose: 1 puff Diazepam (Valium -) 5 mg PO Q8H PRN PRN Reason: MUSCLE SPASMS Last Admin: 04/13/18 09:52 Dose: 5 mg Docusate Sodium (Colace -) 100 mg PO BID [facility] Last Admin: 04/13/18 23:21 Dose: 100 mg Guaifenesin (Robitussin -) 10 ml PO Q8H PRN PRN Reason: COUGH Last Admin: 04/13/18 11:27 Dose: 10 ml Loratadine (Claritin -) 10 mg PO DAILY [facility] Last Admin: 04/13/18 09:46 Dose: 10 mg Losartan Potassium (Cozaar -) 25 mg PO AM [facility] Last Admin: 04/14/18 06:43 Dose: 25 mg Montelukast Sodium (Singulair -) 10 mg PO HS [facility] Last Admin: 04/13/18 23:22 Dose: 10 mg Ondansetron HCl (Zofran Injection) 4 mg IVPUSH Q6H PRN PRN Reason: NAUSEA AND/OR VOMITING Ondansetron HCl (Zofran Injection) 4 mg IVPUSH Q4H PRN PRN Reason: NAUSEA AND/OR VOMITING Oxycodone HCl (Oxycontin -) 10 mg PO BID [facility] Last Admin: 04/13/18 23:21 Dose: 10 mg Oxycodone HCl (Roxicodone -) 10 mg PO Q4H PRN PRN Reason: PAIN LEVEL 7 - 10 Last Admin: 04/14/18 06:44 Dose: 10 mg Pregabalin (Lyrica -) 75 mg PO DAILY [facility] Last Admin: 04/13/18 09:47 Dose: 75 mg Rosuvastatin Calcium (Crestor -) 5 mg PO HS [facility] Last Admin: 04/13/18 23:21 Dose: 5 mg Trazodone HCl (Desyrel -) 50 mg PO DAILY [facility] Last Admin: 04/13/18 09:46 Dose: 50 mg - Objective Vital Signs: Vital Signs Temperature 98.7 F 04/14/18 06:00 Pulse Rate 102 H 04/14/18 06:00 Respiratory Rate 20 04/14/18 06:00 Blood Pressure 136/75 04/14/18 06:00 O2 Sat by Pulse Oximetry (%) 96 04/12/18 21:00 Constitutional: Yes: No Distress, Calm Neck: Yes: Supple Cardiovascular: Yes: Regular Rate and Rhythm Respiratory: Yes: Regular, CTA Bilaterally Gastrointestinal: Yes: Normal Bowel Sounds, Soft Edema: No Labs: CBC, BMP 04/12/18 05:30 04/12/18 05:30 Problem List - Problems (1) Hyperlipidemia Code(s): E78.5 - HYPERLIPIDEMIA, UNSPECIFIED Qualifiers: Hyperlipidemia type: pure hypercholesterolemia Qualified Code(s): E78.00 - Pure hypercholesterolemia, unspecified; E78.0 - Pure hypercholesterolemia (2) COPD (chronic obstructive pulmonary disease) Code(s): J44.9 - CHRONIC OBSTRUCTIVE PULMONARY DISEASE, UNSPECIFIED Qualifiers: COPD type: unspecified COPD Qualified Code(s): J44.9 - Chronic obstructive pulmonary disease, unspecified (3) HTN (hypertension) Code(s): I10 - ESSENTIAL (PRIMARY) HYPERTENSION Qualifiers: Hypertension type: essential hypertension Qualified Code(s): I10 - Essential (primary) hypertension (4) S/P lumbar fusion Code(s): Z98.1 - ARTHRODESIS STATUS (5) Sinus tachycardia Code(s): R00.0 - TACHYCARDIA, UNSPECIFIED Assessment/Plan 04/13/2018 Echo: Normal biventricular size and fxn, tr TR 1. Sinus tachycardia with underlying RBBB, likely due to post operative pain 2. HTN 3. COPD PLAN: 1. Continue post operative care. Analgesia as needed 2. Physical therapy 3. Continue Amlodipine 10 qd, Losartan 25 qd and Crestor 5 qhs 4. D/c planning
--- NOTE | 2018-04-14 10:03 | DS ---
"Physical Exam: SUBJECTIVE: Patient seen and examined at the bedside. in no acute distress. wants to go home. asking for valium script. I called Dr. Berger office, spoke to Rand who will inform Dr. Harrell. OBJECTIVE: discharge home Vital Signs Period Temp Pulse Resp BP Sys/Pozo Pulse Ox Last 24 Hr 98.3 F-98.8 F 84-118 18-20 116-140/70-82 PHYSICAL EXAM GENERAL: The patient is awake, alert, and fully oriented, in no acute distress. HEAD: Normal with no signs of trauma. EYES: PERRL, extraocular movements intact, sclera anicteric, conjunctiva clear. ENT: Ears normal, nares patent, oropharynx clear without exudates, moist mucous membranes. NECK: Trachea midline, full range of motion, supple. LUNGS: Breath sounds equal, clear to auscultation bilaterally, no wheezes, no crackles, no accessory muscle use. HEART: Regular rate and rhythm, mild tachycardia ABDOMEN: Soft, nontender, nondistended, normoactive bowel sounds, no guarding, no rebound, no hepatosplenomegaly, no masses. EXTREMITIES: 2+ pulses, warm, well-perfused, no edema. NEUROLOGICAL: Cranial nerves II through XII grossly intact. Normal speech, gait not observed. PSYCH: Normal mood, normal affect. SKIN: Warm, dry, normal turgor, no rashes or lesions noted. LABS HOSPITAL COURSE: Date of Admission:04/10/18 Date of Discharge: 04/14/18 Patient is a 47 y/o man with a PMHx of: recurrent L5-S1 Spinal Stenosis, LE Radiculopathy, HTN, COPD, Asthma, Sleep Apnea (no CPAP), Depression. s/p Removal of Hardware, Revision Laminectomy. Back Surgery: s/p Removal of Hardware, revision Laminectomy incentive spirometer monitor labs, vitals, pain management (ordered by Dr. Harrell) continue lyrica physical therapy when cleared by surgery bowel regimen Discharge home with surgery follow up Cardiovascular: Hypertension/hyperlipidemia Continue Norvasc 10, Cozaar 25, Crestor 25. Tachycardia. resolved. ekg shows rbbb and short pr. Echo: mild tr Hypertension. controlled. Pulmonary COPD/Asthma, no acute issues Continue Albuterol MDI, Symbicort, Claritin, Singulair Psych: Depression Continue Trazodone, Xanax discharge home. Has appointment to see Dr. Harrell on April [id number] Minutes to complete discharge: 60 Discharge Summary Reason For Visit: SPINAL STENOSIS, LUMBAR REGION WITHOUT NEUROGENIC Current Active Problems COPD (chronic obstructive pulmonary disease) (Acute) HTN (hypertension) (Acute) S/P lumbar fusion (Acute) Sinus tachycardia (Acute) Condition: Stable - Instructions Diet, Activity, Other Instructions: Dr. Harrell's Post Operative Instructions Physical Activity Resume your normal everyday activity as tolerated. No heavy lifting or exercise until seen by your surgeon. You may walk unlimited amounts and climb stairs. You may resume driving the car when you feel safe and comfortable behind the wheel and you are no longer wearing your brace. Do not operate a vehicle while taking narcotic medication. Brace You had back surgery, wear TLSO Brace whenever out of bed. May remove to sleep and shower. Wound Care Keep your incision clean, dry and covered at all times. You make take a sponge bath but do not get incision wet or apply ointments or creams. Diet There are no dietary restrictions. Eat healthy, high-fiber foods. Drink 6-8 glasses of liquid each day. This will assist in keeping your bowels regular. Pain Management You may take Tylenol or acetaminophen. Any pain prescription medication ordered should be taken as prescribed for moderate to severe pain. Call Dr Harrell for any of the following: Severe pain not relieved by medication Fever of 101 or higher Excessive bleeding or drainage on dressing Inability to urinate Any chest pain or shortness of breath, seek Emergency Care. Please call the office at to confirm your post-op appointment for 2 weeks post op [place] [employer] Checked prior too escribe of narcotics for pain management This report was requested by: Michael Allen | Reference #: [id number] 04/03/2018 Endocet 10-325 mg / 180 tablets / Gabriel Harrell MS, MD 04/03/2018 Alprazolam 2 mg / 60 tablets / Gabriel Harrell MS, MD 04/03/2018 Lyrica 75 mg capsule / 30 tablets / Gabriel Harrell MS, MD Disposition: HOME - Home Medications Comprehensive Discharge Medication List: Ambulatory Orders Albuterol Sulfate Inhaler - [Ventolin Hfa Inhaler -] 1 - 2 inh PO QID 04/07/18 Alprazolam [Xanax] 0.25 mg PO BID 04/07/18 Amlodipine Besylate [Norvasc -] 10 mg PO DAILY 04/07/18 Budesonide/Formeterol Fumarate [SYMBICORT 160/4.5mcg -] 1 inh PO DAILY 04/07/18 Cetirizine HCl [Zyrtec -] 10 mg PO DAILY 04/07/18 Ipratropium/Albuterol Sulfate [Combivent Respimat Inhal [place]] 4 gm IH DAILY 02/25 Losartan Potassium [Cozaar -] 25 mg PO DAILY 04/07/18 Montelukast Sodium [Singulair] 10 mg PO HS 04/07/18 Oxycodone HCl/Acetaminophen [Percocet 10-325 mg Tablet] 1 each PO PRN 04/07/18 Pregabalin [Lyrica -] 75 mg PO DAILY 04/07/18 Rosuvastatin [Crestor -] 5 mg PO HS 04/07/18 traZODone HCL [Trazodone HCl] 50 mg PO DAILY 04/07/18 This patient is new to me today: Yes Date on this admission: 04/14/18 Emergency Visit: No Critical Care patient: No - Discharge Referral Referred to [facility] No"
[2018-04-14] MEDS: BUDESONIDE/FORMETEROL FUMARATE 160/4.5 mcg INHALER IH SCH (10:16)
[2018-04-14] MEDS: diazePAM 5 MG TABLET PO PRN (10:47)
[2018-04-14 11:20] VITALS: BP 123/63; PULSE 105; TEMP 97.9
== END 2018-04-14 12:22 | disposition home or self-care (01) | DRG 454 ==
LOC: JSAMEDAYSX 06:11 → JICU 14:49 → J8W 04-12 14:01
PROVIDERS: ADMIT Orthopaedic Surgery Orthopaedic Surgery of the Spine; ATTEND Nurse Practitioner Family
PROC: 0SG30AJ Fusion of Lumbosacral Joint with Interbody Fusion Device, Posterior Approach, Anterior Column, Open Approach (ICD-10-PCS; 2018-04-10)
PROC: 0SG0071 Fusion of Lumbar Vertebral Joint with Autologous Tissue Substitute, Posterior Approach, Posterior Column, Open Approach (ICD-10-PCS; 2018-04-10)
PROC: 0SG307J Fusion of Lumbosacral Joint with Autologous Tissue Substitute, Posterior Approach, Anterior Column, Open Approach (ICD-10-PCS; 2018-04-10)
PROC: 0SG00AJ Fusion of Lumbar Vertebral Joint with Interbody Fusion Device, Posterior Approach, Anterior Column, Open Approach (ICD-10-PCS; 2018-04-10)
PROC: 00QT0ZZ Repair Spinal Meninges, Open Approach (ICD-10-PCS; 2018-04-10)
PROC: 00NY0ZZ Release Lumbar Spinal Cord, Open Approach (ICD-10-PCS; 2018-04-10)
PROC: 4A11X4G Monitoring of Peripheral Nervous Electrical Activity, Intraoperative, External Approach (ICD-10-PCS; 2018-04-10)
PROC: B01BZZZ Fluoroscopy of Spinal Cord (ICD-10-PCS; 2018-04-10)
PROC: 07DR0ZZ Extraction of Iliac Bone Marrow, Open Approach (ICD-10-PCS; 2018-04-10)
PROC: 0SP30AZ Removal of Interbody Fusion Device from Lumbosacral Joint, Open Approach (ICD-10-PCS; principal; 2018-04-10 08:00)
DX: M48.07 Spinal stenosis, lumbosacral region (principal); G96.11 Dural tear; M54.17 Radiculopathy, lumbosacral region; M53.2X7 Spinal instabilities, lumbosacral region
CPT/HCPCS: 36415; 76000-TC-FY; 80048; 80053; 85025; 85027; 86850; 86900; 86901; 88300-TC; 90688; 90732; 93005; 93010; 93306-TC; 94010; 97116-GP; 97161-GP; G0008; G0009; J0131; J1644

== ENCOUNTER 2019-12-17 06:00 | Inpatient (IN) | payer OTHER ==
[2019-12-13 17:47] VITALS: BMI 36.9
[2019-12-17] MEDS ORDERED: ceFAZolin SODIUM 1 GM VIAL IVPB ONE (08:40)
[2019-12-17] MEDS ORDERED: VANCOMYCIN 1,000 MG VIAL (RESTRICTED TO ID ONLY) IVPB ONE (08:45)
[2019-12-17] MEDS ORDERED: morphine SULFATE/PF 0.5 MG/ML (2cc Syringe - QUVA) EP ONE (09:25)
[2019-12-17] MEDS ORDERED: ONDANSETRON 4 MG/2 ML VIAL IVPUSH PRN ×3 (09:26→11:55)
[2019-12-17] MEDS ORDERED: DEXAMETHASONE SOD PHOSPHATE 4 MG/1 ML VIAL IVPUSH PRN (09:28)
[2019-12-17] MEDS ORDERED: PROMETHAZINE HCL 25 MG/1 ML VIAL IVPB PRN (09:28)
[2019-12-17] MEDS ORDERED: LACTATED RINGERS SOLUTION 1,000 ML IV SCH (09:30)
[2019-12-17] MEDS ORDERED: BUPIVACAINE LIPOSOME/PF (EXPAREL) 266 MG/20 ML VIAL NR ONE (11:00)
[2019-12-17] MEDS ORDERED: BUPIVACAINE HCL/PF 0.5% (5 MG/ML) 30 ML VIAL IJ ONE (11:00)
[2019-12-17] MEDS ORDERED: ALBUTEROL SO4 2.5/IPRATROPIUM 0.5 INH SOL 3 ML VIAL.NEB. NEB PRN (11:53)
[2019-12-17] MEDS ORDERED: HYDROmorphone HCl 2 MG/ML VIAL SQ PRN (11:55)
[2019-12-17] MEDS ORDERED: diazePAM CARPU-JECT 10 MG/2 ML DISP.SYRIN IVPUSH PRN (11:55)
[2019-12-17] MEDS: ACETAMINOPHEN 1000 MG/100 ML VIAL (NON FORMULARY) IVPB PRN (13:00)
[2019-12-17] MEDS: LACTATED RINGERS SOLUTION 1,000 ML IV SCH ×2 (13:00→19:57)
[2019-12-17] MEDS: CEFAZOLIN 2 GM/D5W 2 GM/50 ML ML IVPB SCH ×2 (15:30→21:10)
[2019-12-17] MEDS ORDERED: PCA PUMP NR ONE ×2 (17:04→19:46)
[2019-12-17] MEDS: HYDROmorphone *PCA* 10MG/50ML DISP.SYRIN PCA SCH (19:35)
[2019-12-17] MEDS: PREGABALIN 75 MG CAPSULE PO SCH (22:47)
[2019-12-17] MEDS: CARVEDILOL 12.5 MG TABLET (FP) PO SCH (22:47)
[2019-12-17] MEDS: AMITRIPTYLINE HCL 25 MG TABLET PO SCH (22:48)
[2019-12-17] MEDS: BUDESONIDE/FORMETEROL FUMARATE 160/4.5 mcg INHALER IH SCH (22:48)
[2019-12-17] MEDS: ALPRAZolam 0.25 MG TABLET PO PRN (22:56)
[2019-12-17] MEDS: ALBUTEROL SO4 HFA INHALER IH SCH (22:59)
[2019-12-18] MEDS: CEFAZOLIN 2 GM/D5W 2 GM/50 ML ML IVPB SCH (02:53)
[2019-12-18] MEDS: ACETAMINOPHEN 1000 MG/100 ML VIAL (NON FORMULARY) IVPB PRN (05:11)
[2019-12-18 07:07] LABS: HEMATOCRIT 36.9 % (35.4-49); HEMOGLOBIN 12.1 GM/dL (11.7-16.9); MCH 30.7 pg (25.7-33.7); MCHC 32.8 g/dl (32.0-35.9); MEAN CELL VOLUME 93.5 fl (80-96); MEAN PLT VOLUME 9.1 fl (7.5-11.1); PLATELET COUNT 246 K/MM3 (134-434); RBC 3.94 M/mm3 (4.00-5.60); RDW 14.5 % (11.9-15.9); WHITE BLOOD COUNT 11.1 K/mm3 (4.0-10.0)
[2019-12-18 07:10] LABS: POTASSIUM 3.9 mmol/L (3.5-5.1)
[2019-12-18 07:13] LABS: BLOOD UREA NITROGEN 15.9 mg/dL (7-18); CALCIUM 8.3 mg/dL (8.5-10.1)
[2019-12-18 07:17] LABS: PHOSPHOROUS 3.3 mg/dL (2.5-4.9)
[2019-12-18] MEDS: ALBUTEROL SO4 HFA INHALER IH SCH ×4 (07:48→18:16)
[2019-12-18 08:12] LABS: CREATININE 0.9 mg/dL (0.55-1.3)
[2019-12-18] MEDS ORDERED: PT OWN MED DRAWER 7, Y5N ONE ×2 (08:15→23:12)
[2019-12-18] MEDS: CARVEDILOL 12.5 MG TABLET (FP) PO SCH ×2 (09:20→23:00)
[2019-12-18] MEDS: LORATADINE 10 MG TABLET PO SCH (09:20)
[2019-12-18] MEDS: PREGABALIN 75 MG CAPSULE PO SCH ×2 (09:20→23:00)
[2019-12-18] MEDS: LOSARTAN POTASSIUM 25 MG TABLET PO SCH (09:20)
[2019-12-18] MEDS: BUDESONIDE/FORMETEROL FUMARATE 160/4.5 mcg INHALER IH SCH ×2 (09:20→23:00)
[2019-12-18] MEDS: amLODIPine BESYLATE 10 MG TABLET (FP) PO SCH (09:20)
[2019-12-18] MEDS ORDERED: CARVEDILOL 12.5 MG TABLET (FP) PO SCH (10:00)
[2019-12-18] MEDS: ACYCLOVIR 400 MG TABLET PO SCH (11:03)
[2019-12-18] MEDS: LACTATED RINGERS SOLUTION 1,000 ML IV SCH (11:59)
[2019-12-18] MEDS: ALPRAZolam 0.25 MG TABLET PO PRN ×2 (13:11→23:15)
[2019-12-18] MEDS ORDERED: BENZOCAINE/MENTH/CETYLPYRD CL 1 EACH LOZENGE MM PRN (14:19)
[2019-12-18] MEDS: HYDROmorphone *PCA* 10MG/50ML DISP.SYRIN PCA SCH (16:10)
[2019-12-18] MEDS ORDERED: DOCUSATE SODIUM 100 MG CAPSULE (FP) PO ONE (16:31)
[2019-12-18] MEDS ORDERED: ALBUTEROL SO4 HFA INHALER IH PRN (18:17)
[2019-12-18] MEDS: AMITRIPTYLINE HCL 25 MG TABLET PO SCH (23:00)
[2019-12-18] MEDS: SENNOSIDES 8.6MG TABLET (FP) PO SCH (23:00)
[2019-12-18] MEDS: PROMETHAZINE HCL 25 MG/1 ML VIAL IVPUSH PRN (23:16)
[2019-12-19] MEDS: HYDROmorphone *PCA* 10MG/50ML DISP.SYRIN PCA SCH ×2 (00:05→16:49)
[2019-12-19] MEDS ORDERED: PT OWN MED DRAWER 7, Y5N ONE ×4 (06:04→23:04)
[2019-12-19] MEDS ORDERED: oxyCODONE HCL 5 MG TABLET PO PRN ×3 (06:26→23:34)
[2019-12-19] MEDS ORDERED: ARTIFICIAL TEARS (POLYVINYL ALCOHOL) OPTH DROPS OU PRN ×2 (06:30→23:34)
[2019-12-19] MEDS: oxyCODONE HCL 5 MG TABLET PO PRN ×2 (06:40→21:40)
[2019-12-19] MEDS: guaiFENesin 200 MG/10 ML 10 ML UNIT-DOSE CUPS PO PRN ×2 (06:40→23:07)
[2019-12-19] MEDS: ACETAMINOPHEN 500 MG TABLET (FP) PO PRN ×2 (06:41→21:41)
[2019-12-19 06:59] LABS: HEMATOCRIT 34.6 % (35.4-49); HEMOGLOBIN 11.4 GM/dL (11.7-16.9); MCH 30.8 pg (25.7-33.7); MEAN CELL VOLUME 93.3 fl (80-96); MEAN PLT VOLUME 8.9 fl (7.5-11.1); PLATELET COUNT 216 K/MM3 (134-434); RBC 3.71 M/mm3 (4.00-5.60); RDW 14.4 % (11.9-15.9); WHITE BLOOD COUNT 10.2 K/mm3 (4.0-10.0)
[2019-12-19 07:12] LABS: POTASSIUM 3.6 mmol/L (3.5-5.1)
[2019-12-19 07:27] LABS: BLOOD UREA NITROGEN 8.9 mg/dL (7-18)
[2019-12-19 07:31] LABS: CREATININE 0.7 mg/dL (0.55-1.3); PHOSPHOROUS 1.6 mg/dL (2.5-4.9)
[2019-12-19] MEDS: LOSARTAN POTASSIUM 25 MG TABLET PO SCH (09:23)
[2019-12-19] MEDS: LORATADINE 10 MG TABLET PO SCH (09:23)
[2019-12-19] MEDS: CARVEDILOL 12.5 MG TABLET (FP) PO SCH ×2 (09:23→23:07)
[2019-12-19] MEDS: ACYCLOVIR 400 MG TABLET PO SCH (09:24)
[2019-12-19] MEDS: NAPH,MB-DB/K PH,MBDB POWDER PACKET PO SCH ×2 (09:24→23:07)
[2019-12-19] MEDS: PREGABALIN 75 MG CAPSULE PO SCH ×2 (09:24→23:07)
[2019-12-19] MEDS: amLODIPine BESYLATE 10 MG TABLET (FP) PO SCH (09:24)
[2019-12-19] MEDS: BUDESONIDE/FORMETEROL FUMARATE 160/4.5 mcg INHALER IH SCH ×2 (09:31→23:08)
[2019-12-19] MEDS: DOCUSATE SODIUM 100 MG CAPSULE (FP) PO SCH ×2 (12:20→23:08)
[2019-12-19] MEDS: LACTATED RINGERS SOLUTION 1,000 ML IV SCH ×2 (12:20→23:40)
[2019-12-19] MEDS ORDERED: PCA PUMP NR ONE (13:09)
[2019-12-19] MEDS: SENNOSIDES 8.6MG TABLET (FP) PO SCH (23:07)
[2019-12-19] MEDS: AMITRIPTYLINE HCL 25 MG TABLET PO SCH (23:07)
[2019-12-19] MEDS: ALPRAZolam 0.25 MG TABLET PO PRN (23:07)
[2019-12-19] MEDS: PROMETHAZINE HCL 25 MG/1 ML VIAL IVPUSH PRN (23:08)
[2019-12-19] MEDS ORDERED: ALBUTEROL SO4 HFA INHALER IH PRN (23:34)
[2019-12-19] MEDS ORDERED: guaiFENesin 200 MG/10 ML 10 ML UNIT-DOSE CUPS PO PRN (23:34)
[2019-12-19] MEDS ORDERED: diazePAM CARPU-JECT 10 MG/2 ML DISP.SYRIN IVPUSH PRN (23:34)
[2019-12-19] MEDS ORDERED: ACETAMINOPHEN 500 MG TABLET (FP) PO PRN (23:34)
[2019-12-19] MEDS ORDERED: PROMETHAZINE HCL 25 MG/1 ML VIAL IVPB PRN (23:34)
[2019-12-19] MEDS ORDERED: ALBUTEROL SO4 2.5/IPRATROPIUM 0.5 INH SOL 3 ML VIAL.NEB. NEB PRN (23:34)
[2019-12-19] MEDS ORDERED: ONDANSETRON 4 MG/2 ML VIAL IVPUSH PRN ×3 (23:34)
[2019-12-19] MEDS ORDERED: HYDROmorphone HCl 2 MG/ML VIAL SQ PRN (23:34)
[2019-12-20] MEDS: oxyCODONE HCL 5 MG TABLET PO PRN ×3 (04:46→19:55)
[2019-12-20] MEDS: BENZOCAINE/MENTH/CETYLPYRD CL 1 EACH LOZENGE MM PRN ×2 (04:48→13:47)
[2019-12-20] MEDS: LACTATED RINGERS SOLUTION 1,000 ML IV SCH ×2 (08:06→16:27)
[2019-12-20 08:12] LABS: HEMATOCRIT 34.7 % (35.4-49); HEMOGLOBIN 11.4 GM/dL (11.7-16.9); MCH 30.8 pg (25.7-33.7); MCHC 32.9 g/dl (32.0-35.9); MEAN CELL VOLUME 93.4 fl (80-96); PLATELET COUNT 235 K/MM3 (134-434); RBC 3.71 M/mm3 (4.00-5.60); RDW 14.7 % (11.9-15.9); WHITE BLOOD COUNT 9.8 K/mm3 (4.0-10.0)
[2019-12-20 08:25] LABS: POTASSIUM 3.7 mmol/L (3.5-5.1)
[2019-12-20 08:29] LABS: CALCIUM 8.2 mg/dL (8.5-10.1)
[2019-12-20 08:30] LABS: BLOOD UREA NITROGEN 7.5 mg/dL (7-18); MAGNESIUM 2.2 mg/dL (1.8-2.4)
[2019-12-20] MEDS ORDERED: PT OWN MED DRAWER 7, Y5N ONE ×2 (10:13→23:05)
[2019-12-20] MEDS: CARVEDILOL 12.5 MG TABLET (FP) PO SCH ×3 (10:20→22:51)
[2019-12-20] MEDS: LORATADINE 10 MG TABLET PO SCH (10:20)
[2019-12-20] MEDS: DOCUSATE SODIUM 100 MG CAPSULE (FP) PO SCH ×3 (10:20→22:51)
[2019-12-20] MEDS: LOSARTAN POTASSIUM 25 MG TABLET PO SCH (10:22)
[2019-12-20] MEDS: PREGABALIN 75 MG CAPSULE PO SCH ×3 (10:22→22:51)
[2019-12-20] MEDS: amLODIPine BESYLATE 10 MG TABLET (FP) PO SCH (10:22)
[2019-12-20] MEDS: ACYCLOVIR 400 MG TABLET PO SCH (10:22)
[2019-12-20] MEDS: BUDESONIDE/FORMETEROL FUMARATE 160/4.5 mcg INHALER IH SCH ×2 (11:24→23:10)
[2019-12-20 12:07] LABS: CREATININE 0.7 mg/dL (0.55-1.3); PHOSPHOROUS 3.1 mg/dL (2.5-4.9)
[2019-12-20 12:08] LABS: TOT PROT 6.4 g/dl (6.4-8.2)
[2019-12-20 12:09] LABS: BILIRUBIN,TOTAL 0.6 mg/dL (0.2-1)
[2019-12-20] MEDS ORDERED: PCA PUMP NR ONE ×2 (14:04→17:11)
[2019-12-20] MEDS: HYDROmorphone *PCA* 10MG/50ML DISP.SYRIN PCA SCH (14:07)
[2019-12-20] MEDS ORDERED: SENNOSIDES 8.6MG TABLET (FP) PO SCH (22:00)
[2019-12-20] MEDS ORDERED: AMITRIPTYLINE HCL 25 MG TABLET PO SCH (22:00)
[2019-12-20] MEDS: ALPRAZolam 0.25 MG TABLET PO PRN (23:09)
[2019-12-21] MEDS: oxyCODONE HCL 5 MG TABLET PO PRN ×2 (02:55→08:52)
[2019-12-21] MEDS: LORATADINE 10 MG TABLET PO SCH (09:47)
[2019-12-21] MEDS: CARVEDILOL 12.5 MG TABLET (FP) PO SCH (09:47)
[2019-12-21] MEDS: amLODIPine BESYLATE 10 MG TABLET (FP) PO SCH (09:47)
[2019-12-21] MEDS: PREGABALIN 75 MG CAPSULE PO SCH (09:48)
[2019-12-21] MEDS: LOSARTAN POTASSIUM 25 MG TABLET PO SCH (09:48)
[2019-12-21] MEDS: ACYCLOVIR 400 MG TABLET PO SCH (09:52)
[2019-12-21] MEDS: DOCUSATE SODIUM 100 MG CAPSULE (FP) PO SCH (09:53)
[2019-12-21] MEDS: BUDESONIDE/FORMETEROL FUMARATE 160/4.5 mcg INHALER IH SCH (10:22)
[2019-12-21] MEDS: ALPRAZolam 0.25 MG TABLET PO PRN (10:25)
[2019-12-21 14:56] VITALS: BP 118/98; PULSE 99; TEMP 98.1
== END 2019-12-21 15:11 | disposition home health service (06) | DRG 460 ==
LOC: J2C 06:00 → JICU 13:39 → J8W 12-19 23:33
PROVIDERS: ADMIT Orthopaedic Surgery Orthopaedic Surgery of the Spine; ATTEND Nurse Practitioner Family
PROC: 0SG3071 Fusion of Lumbosacral Joint with Autologous Tissue Substitute, Posterior Approach, Posterior Column, Open Approach (ICD-10-PCS; 2019-12-17)
PROC: 00Q20ZZ Repair Dura Mater, Open Approach (ICD-10-PCS; 2019-12-17)
PROC: 00U20KZ Supplement Dura Mater with Nonautologous Tissue Substitute, Open Approach (ICD-10-PCS; 2019-12-17)
PROC: 00NY0ZZ Release Lumbar Spinal Cord, Open Approach (ICD-10-PCS; 2019-12-17)
PROC: B01BZZZ Fluoroscopy of Spinal Cord (ICD-10-PCS; 2019-12-17)
PROC: 0SP304Z Removal of Internal Fixation Device from Lumbosacral Joint, Open Approach (ICD-10-PCS; principal; 2019-12-17 08:00)
DX: M96.0 Pseudarthrosis after fusion or arthrodesis (principal); G97.41 Accidental puncture or laceration of dura during a procedure; Y83.9 Surgical procedure, unspecified as the cause of abnormal reaction of the patient, or of later complication, without mention of misadventure at the time of the procedure; M48.061 Spinal stenosis, lumbar region without neurogenic claudication; M54.17 Radiculopathy, lumbosacral region; I10 Essential (primary) hypertension; R73.03 Prediabetes; J44.9 Chronic obstructive pulmonary disease, unspecified; J45.909 Unspecified asthma, uncomplicated; E78.5 Hyperlipidemia, unspecified; R00.0 Tachycardia, unspecified; G47.33 Obstructive sleep apnea (adult) (pediatric); F32.9 Major depressive disorder, single episode, unspecified
CPT/HCPCS: 36415; 72100-TC-FY; 76000-TC-FY; 80048; 80053; 83735; 84100; 85027; 86850; 86900; 86901; 88300-TC; 94010; 94760; 97116-GP; 97161-GP; J0131